=== PATIENT | female | born 1960 | race Two or more races ===

== ENCOUNTER 2020-11-13 11:10 | Outpatient (REF) | payer OTHER, SELFPAY | END 2020-11-13 11:11 | disposition home or self-care (01) | LOC: HO.LAB 11:10 | PROVIDERS: Visit Provider Internal Medicine | DX: Z20.828 Contact with and (suspected) exposure to other viral communicable diseases (principal) | CPT/HCPCS: C9803; U0003 ==

== ENCOUNTER 2021-10-22 14:20 | Outpatient (REF) | payer OTHER, SELFPAY | END 2021-10-22 14:21 | disposition home or self-care (01) | LOC: HO.MAMMO 14:20 | PROVIDERS: PCP Nurse Practitioner Family; Visit Provider Advanced Practice Midwife | DX: Z13.89 Encounter for screening for other disorder (principal) ==

== ENCOUNTER 2021-11-04 13:18 | Outpatient (REF) | payer OTHER, SELFPAY ==
--- NOTE | ~2021-11-04 | XR_ITS ---
EXAMINATION: XR CHEST CLINICAL INFORMATION: Asthma COMPARISON: 11/17/2019 TECHNIQUE: 2 views of the chest were obtained. FINDINGS: Normal symmetric lung volumes. No parenchymal consolidation. No pleural effusion. No pneumothorax. Cardiomediastinal silhouette and pulmonary vascularity are within normal limits. Aorta is atherosclerotic. No acute osseous abnormalities. XR/XR chest 2V IMPRESSION: No acute findings
== END 2021-11-04 13:19 | disposition home or self-care (01) ==
LOC: HO.LAB 13:18
PROVIDERS: Visit Provider Internal Medicine Cardiovascular Disease
DX: J45.909 Unspecified asthma, uncomplicated (principal); E78.5 Hyperlipidemia, unspecified
CPT/HCPCS: 71046

== ENCOUNTER 2021-11-06 09:33 | Outpatient (REF) | payer OTHER, SELFPAY ==
--- NOTE | ~2021-11-06 | MM_ITS ---
EXAMINATION: MM DIAGNOSTIC DIGITAL BREAST TOMOSYNTHESIS, LEFT US DIAGNOSTIC ULTRASOUND BREAST, LEFT CLINICAL INFORMATION: Chronic intermittent noncyclical pain left breast. Prior history excision intraductal papilloma left breast, 2015. No palpable mass or discharge. Family history breast cancer, cousin. TC Score 5%. COMPARISON: Outside imaging from [facility]: mammography 03/06/2021, 07/12/2020, 01/19/2020, 11/07/2019 and left breast ultrasound 11/07/2019. TECHNIQUE: Digital breast tomosynthesis is performed in both the craniocaudal and mediolateral oblique views along with computer-aided detection (CAD). Synthesized 2D images are generated from the tomosynthesis. Ultrasound left breast is targeted to the areas of clinical concern 12:00 through 6:00 position as well as retroareolar breast. Grayscale imaging and color Doppler are performed without and with harmonics. FINDINGS: There are scattered areas of fibroglandular density (ACR BI-RADS breast composition Category b). Parenchymal pattern is similar to prior exams. There is no interval mass or architectural abnormality. No developing density. There are scattered benign punctate calcifications as well as some vascular calcifications, similar in number and distribution. The axilla and skin contours are unremarkable. No skin thickening or coarsening of the Jaden's ligaments. Ultrasound left breast demonstrates no cystic or solid mass or architectural abnormality. No focal duct ectasia. No skin thickening or edema tracking in soft tissue planes. No hyperemia. Results are discussed with the patient at time of visit. MM/MM tomosynthesis diagnostic BI IMPRESSION: 1. No mammographic evidence of malignancy or inflammatory changes. 2. Unremarkable left breast ultrasound. ASSESSMENT: BI-RADS 2: Benign RECOMMENDATION: 1. Patient's chronic intermittent left breast pain should be managed based on the clinical impression. 2. Otherwise, routine annual screening mammography. This patient's information was entered into a reminder system with a target due date for their next mammogram.
== END 2021-11-06 09:34 | disposition home or self-care (01) ==
LOC: HO.MAMMO 09:33
PROVIDERS: PCP Nurse Practitioner Family; Visit Provider Advanced Practice Midwife
DX: N64.4 Mastodynia (principal)
CPT/HCPCS: 76642; 77062; 77066

== ENCOUNTER 2022-03-18 12:45 | Outpatient (REF) | payer OTHER, SELFPAY ==
[2022-03-18 13:35] LABS: COVID-19 Test Negative (Negative); IDNOW Serial# 08D9AD1C
== END 2022-03-18 12:46 | disposition home or self-care (01) ==
LOC: HO.LAB 12:45
PROVIDERS: Visit Provider Internal Medicine
DX: Z20.822 Contact with and (suspected) exposure to COVID-19 (principal)
CPT/HCPCS: 87635; C9803

== ENCOUNTER 2022-03-24 12:36 | Outpatient (REF) | payer OTHER, SELFPAY ==
[2022-03-24 13:10] LABS: COVID-19 Test Negative (Negative)
== END 2022-03-24 12:37 | disposition home or self-care (01) ==
LOC: HO.LAB 12:36
PROVIDERS: Visit Provider Internal Medicine
DX: Z20.822 Contact with and (suspected) exposure to COVID-19 (principal)
CPT/HCPCS: 87635; C9803

== ENCOUNTER 2022-08-31 13:22 | Outpatient (REF) | payer OTHER, SELFPAY ==
[2022-08-31 13:58] LABS: COVID-19 Test Negative (Negative)
== END 2022-08-31 13:23 | disposition home or self-care (01) ==
LOC: HO.LAB 13:22
PROVIDERS: Visit Provider Internal Medicine
DX: Z20.822 Contact with and (suspected) exposure to COVID-19 (principal)
CPT/HCPCS: 87635; C9803

== ENCOUNTER 2022-09-18 11:21 | Outpatient (REF) | payer OTHER, SELFPAY ==
[2022-09-18 12:26] LABS: Estimated Average Glucose 111 mg/dL; Hemoglobin A1c % 5.5 %
[2022-09-18 12:49] LABS: Alanine Aminotransferase 11 U/L (0-31); Albumin Level 4.6 g/dL (3.5-5.0); Alkaline Phosphatase 68 U/L (39-117); Anion Gap 14 (12-20); Aspartate Amino Transferase 14 U/L (5-31); Bilirubin Total 0.3 mg/dL (0.0-1.0); Blood Urea Nitrogen 9 mg/dL (9-16); Calcium 9.6 mg/dL (8.4-10.2); Carbon Dioxide 28 mmol/L (22-29); Chloride 103 mmol/L (96-108); Cholesterol 231 mg/dL; Estimated Glomerular Filt Rate > 60; Glucose Random 79 mg/dL (60-115); HDL Cholesterol 72 mg/dL; LDL Cholesterol Calculated 141 mg/dl; Potassium 3.8 mmol/L (3.3-5.1); Sodium 141 mmol/L (135-145); Total Protein 7.7 g/dL (6.5-8.0); Triglycerides 92 mg/dL
[2022-09-18 13:01] LABS: TSH reflex Free T4 0.81 uIU/mL (0.32-4.0)
== END 2022-09-18 11:22 | disposition home or self-care (01) ==
LOC: HO.LAB 11:21
PROVIDERS: PCP General Practice; Visit Provider General Practice
DX: E03.9 Hypothyroidism, unspecified (principal); E78.5 Hyperlipidemia, unspecified; I10 Essential (primary) hypertension
CPT/HCPCS: 36415; 80053; 80061; 83036; 84443

== ENCOUNTER 2023-11-08 12:08 | Emergency (ER) | payer OTHER, SELFPAY ==
[2023-11-08 12:37] VITALS: BP 140/80; PULSE 66; O2SAT 97
[2023-11-08 12:41] VITALS: BP 143/67; PULSE 96; RESP 16; TEMP 37.7; O2SAT 100; BMI 21.5
[2023-11-08 13:11] LABS: COVID-19 Test Positive (Negative); IDNOW Serial# 08D9AD1C
[2023-11-08 13:22] LABS: IDNOW Serial# BCCEAD1C; Influenza A Negative (Negative); Influenza B2 Negative (Negative)
--- NOTE | 2023-11-08 14:57 | ED.GENADULT ---
HPI - General Adult General Chief complaint: General Medical Stated complaint: MEAGAN LEG PAIN,NO INJURY PER EMS Time Seen by Provider: 11/08/23 13:14 History of Present Illness HPI narrative: Patient complains of body aches nausea a mild cough mild runny nose, no vomiting no diarrhea no chest pain no sputum no shortness of breath Related Data Previous Rx's Medication Instructions Recorded nirmatrelvir 300 mg (150 mg See Rx Instructions PO .COMPLEX 11/08/23 x2)-ritonavir 100 mg tablet,dose #30 ea pack (Paxlovid) ondansetron 4 mg disintegrating 4 mg PO Q6-8H PRN nausea and 11/08/23 tablet vomiting #14 tabs Allergies Allergy/AdvReac Type Severity Reaction Status Date / Time oxycodone [Percocet] Allergy Unknown GI upset Verified 09/25/21 13:30 codeine [CODEINE] AdvReac Intermediate GI UPSET Unverified 09/25/21 13:30 From Percocet AdvReac Intermediate GI UPSET Uncoded 09/25/21 13:30 PMF Past Medical History Source: nursing notes reviewed Social History Social History (System 09/25/21 @ 13:30 by Norah Heard) Advance Directives: No Advance Directives Information Provided: No Physical Exam ED Vital Signs: Vital Signs - 24 hr 11/08/23 12:41 Temperature 99.8 F Pulse Rate 96 Respiratory Rate 16 Blood Pressure 143/67 H Pulse Oximetry 100 Oxygen Delivery Method Room Air BMI result Body Mass Index 21.5 General appearance comfortable cooperative no acute distress speaking full sentences no respiratory distress Eyes no redness or discharge The sinuses nontender The pharynx is clear without redness swelling or exudate membranes are moist voice is normal Neck is supple Chest is clear to auscultation with full symmetric equal breath sounds Heart no murmur Abdomen soft nontender Extremities full range of motion x4 Neuro gait and balance are normal, interaction comprehension and expression are all normal, motor is 5/5 x4, no focal deficits Skin no rash Course Course Course Narrative: Well-appearing patient with normal exam was positive for COVID She has had symptoms under 48 hours so she agreed to take the Paxlovid, I did check medication interactions and I recommended she do not take zolpidem tramadol or atorvastatin while taking Paxlovid and she understood and agreed, it is okay to take her thyroid medicine Medical Decision Making Lab Data Labs: Lab Results 11/08/23 Range/Units 12:48 COVID-19 (LEXIE) Positive A (Negative) COVID-19 Clin Com See Note Influenza Type A (ANANDA) Negative (Negative) Influenza Type B (ANANDA) Negative (Negative) Influenza A & B Note See Note Discharge Plan Discharge Clinical Impression: COVID Patient Disposition: Home, Self-Care Additional Instructions: You tested positive for COVID so we are treating with paxlovid It is okay to take her thyroid medicine while taking paxlovid, but do not take tramadol or atorvastatin or zolpidem while taking paxlovid Return any time any worse condition or any concerns Prescriptions: New ondansetron 4 mg tablet,disintegrating 4 mg PO Q6-8H PRN (Reason: nausea and vomiting) Qty: 14 0RF Paxlovid 300 mg (150 mg x 2)-100 mg tablets,dose pack See Rx Instructions .ROUTE .COMPLEX Qty: 30 0RF Rx Instructions: take TWO 150 mg tablets of nirmatrelvir with ONE 100 mg tablet of ritonavir twice daily for 5 days
[2023-11-08 15:41] VITALS: BP 142/71; PULSE 89; RESP 18; TEMP 37; O2SAT 99
== END 2023-11-08 15:42 | disposition home or self-care (01) ==
PROVIDERS: Emergency Provider Emergency Medicine; PCP General Practice
DX: U07.1 COVID-19 (principal); M79.10 Myalgia, unspecified site; R05.9 Cough, unspecified; Z79.899 Other long term (current) drug therapy
CPT/HCPCS: 87502; 87635; 99283

== ENCOUNTER 2023-12-14 14:24 | Outpatient (REF) | payer OTHER, SELFPAY ==
--- NOTE | ~2023-12-14 | MM_ITS ---
EXAMINATION: MM SCREENING DIGITAL BREAST TOMOSYNTHESIS, BILATERAL CLINICAL INFORMATION: Screening. Asymptomatic. The patient is status post excision of an intraductal papilloma of the upper outer quadrant of the left breast in 2015. COMPARISON: Mammography: This study is compared with prior exams dating back to 2019. TECHNIQUE: Digital breast tomosynthesis is performed in both the craniocaudal and mediolateral oblique views along with computer-aided detection (CAD). Synthesized 2D images are generated from the tomosynthesis. FINDINGS: The breasts are heterogeneously dense, which may obscure small masses (ACR BI-RADS breast composition Category c). There are no significant masses, abnormal calcifications, or other abnormalities. Postsurgical changes are present in the upper outer quadrant of the left breast. Bilateral benign calcifications are present in each breast. MM/MM tomosynthesis screening BI IMPRESSION: No mammographic evidence of malignancy. ASSESSMENT: BI-RADS BI-RADS 2 - Benign Findings RECOMMENDATION: Routine annual mammography screening. 1 year F/U This examination should not preclude the clinical evaluation of a suspicious palpable abnormality. This patient's information was entered into a reminder system with a target due date for their next mammogram.
== END 2023-12-14 14:25 | disposition home or self-care (01) ==
LOC: HO.MAMMO 14:24
PROVIDERS: PCP Family Medicine; Visit Provider Family Medicine
DX: Z12.31 Encounter for screening mammogram for malignant neoplasm of breast (principal)
CPT/HCPCS: 77063; 77067

== ENCOUNTER → 2023-12-14 14:45 | Outpatient (BNV) | payer OTHER, SELFPAY | PROVIDERS: PCP Family Medicine; Visit Provider Radiology Diagnostic Radiology | DX: Z12.31 Encounter for screening mammogram for malignant neoplasm of breast (principal) | CPT/HCPCS: 77063; 77067 ==

== ENCOUNTER 2024-09-12 15:48 | Outpatient (REF) | payer OTHER, SELFPAY ==
[2024-09-12 18:14] LABS: Alanine Aminotransferase 31 U/L (0-31); Albumin Level 4.4 g/dL (3.5-5.0); Alkaline Phosphatase 72 U/L (39-117); Anion Gap 13 (12-20); Aspartate Amino Transferase 27 U/L (5-31); Bilirubin Total 0.3 mg/dL (0.0-1.0); Blood Urea Nitrogen 19 mg/dL (9-16); Calcium 9.7 mg/dL (8.4-10.2); Carbon Dioxide 26 mmol/L (22-29); Chloride 106 mmol/L (96-108); Cholesterol 216 mg/dL (<200); Estimated Glomerular Filt Rate > 60; Glucose Random 98 mg/dL (60-115); HDL Cholesterol 82 mg/dL (>40); LDL Cholesterol Calculated 105 mg/dL (<100); Potassium 3.9 mmol/L (3.3-5.1); Sodium 141 mmol/L (135-145); Total Protein 7.7 g/dL (6.5-8.0); Triglycerides 146 mg/dL (<150)
== END 2024-09-12 15:49 | disposition home or self-care (01) ==
LOC: HO.HHCL 15:48
PROVIDERS: Visit Provider General Practice
DX: I10 Essential (primary) hypertension (principal); E03.9 Hypothyroidism, unspecified
CPT/HCPCS: 36415; 80053; 80061; 84443

== ENCOUNTER 2024-11-02 11:09 | Outpatient (AMB) | payer OTHER, SELFPAY ==
--- NOTE | 2024-11-02 11:05 | MHC.OFFVIS ---
Vital Signs 11/02/24 11:10 Height 5 ft Weight 110 lb BMI 21.5 Intake Visit Reasons: REGISTERED NURSE RENAL/HHC Ref for VV w/ Hx [facility] Intake Note: Pt referred for VV w/ hx of Left LE Venous procedure at [facility], did cause some nerve damage. States it was about 3 or more years ago. Pt states that Left LE has pain and numbness. States she has issues on the Right LE but doesnt want itervention s/p issue w/ the left LE Lead Custodian Required: No Accompanied by: Self / Same As Patient Allergies oxycodone [Percocet] Allergy (Unknown, Verified 11/02/24 11:13) GI upset codeine [CODEINE] Adverse Reaction (Intermediate, Unverified 11/02/24 11:13) GI UPSET From Percocet Adverse Reaction (Intermediate, Uncoded 11/02/24 11:13) GI UPSET HPI HPI REGISTERED NURSE RENAL/HHC Ref for VV w/ Hx [facility]: Details: Lorenza, a pleasant 64-year-old female patient, is presenting today for a 4 year history of pain in her calves as well as swelling. She is status post left lower extremity vein procedure at [facility], possibly a microphlebectomy. She states she was having just cramping prior to that and did not tolerate procedure well. She states she thinks she has nerve damage from the procedure. She states the pain has continued since. Complaints include pain in her calves, slight swelling of lower extremities, cramping, fatigue, and heaviness of the lower extremities. It has been affecting their daily activities including walking, standing, and physical activity. It is noted more so in left leg. She is not a smoker and is not a diabetic. Patient states she had a microphlebectomy at [facility] approximately 4 years ago in the left lower extremity. Patient denies any history of DVT/ PE. Patient denies any history of phlebitis. Trial of compression includes - occasionally compression stockings and elevation They now present for vascular evaluation regarding their varicose veins. Review of Systems Const Reports as per HPI and Denies weakness ENT Reports Normal hearing present and Denies dizziness Card Reports as per HPI, Denies chest pain, Denies chest pain at rest, Denies chest pain with activity, Denies dyspnea and Denies dyspnea on exertion Resp Reports as per HPI, Denies cough, Denies dyspnea and Denies dyspnea on exertion GI Reports as per HPI, Denies abdominal pain, Denies nausea and Denies vomiting Musc Denies numbness Skin/Breast Reports as per HPI, Denies erythema and Denies wounds Neuro Reports Normal hearing present, Denies dizziness, Denies numbness, Denies Sensory deficit (Neuro) and Denies weakness Psych Reports no additional complaints Endo Reports no additional complaints Physical Exam Vital Signs: BMI result Body Mass Index 21.5 Const General: healthy appearing and no acute distress Orientation/consciousness: patient oriented x3 HEENT Head: Yes normal to inspection Ears: hearing grossly normal bilaterally Mouth: Normal oral and palatal mucosa present Resp Effort & Inspection: normal respiratory effort and able to speak in complete sentences Auscultation: clear to auscultation bilaterally Cardio Jugular venous distension: no JVD Rate: regular rate Rhythm: regular rhythm Heart sounds: S1 normal heart sound present and S2 normal heart sound present Bruits: no abdominal aortic bruits, no carotid bruits, no femoral bruits and no renal bruits Peripheral pulses: Peripheral pulses 2+ throughout GI Inspection: Yes normal to inspection Palpation (GI): No Abdominal aortic bruit present Skin General skin exam: no rashes or lesions noted Wounds: no wounds Hair: normal Neuro General: patient oriented x3 Cranial nerves: Yes Normal hearing present Cognition (Neuro): normal cognition Gait exam (Neuro): Normal gait present Motor exam (neuro): 5/5 motor strength present throughout Sensory Exam: No Sensory deficit (Neuro) Extrem Other: Left lower extremity: Spider veins noted in the tibial tuberosity area. Slight discoloration noted around the ankle. No swelling noted now; however the patient states swelling usually occurs later in the day. Palpable DP pulses. Right lower extremity: Small spider veins noted in the tibial tuberosity area. Palpable DP pulses. CEAP: C - 4 E - primary A - superficial P - reflux General: Yes normal to inspection, Yes full ROM, Yes capillary refill normal and Yes normal gait Assessment & Plan Assessment & Plan (1) Varicose veins of both lower extremities with inflammation: Code(s): I83.11 - Varicose veins of right lower extremity with inflammation; I83.12 - Varicose veins of left lower extremity with inflammation Category: Medical Plan: Lorenza is presenting today as a referral from her primary care for varicose veins/venous insufficiency. In short, the patient has evidence of venous insufficiency. I have discussed the pathophysiology with the patient. In addition I have provided informational material regarding venous disease to the patient. We have discussed conservative measures including compression, elevation, and exercise. We discussed continuing to use compression stockings. I have taken the liberty of ordering venous insufficiency testing with the patient. They will follow up with me after testing. The patient had an opportunity to ask questions regarding the treatment plan. All questions were answered. Imaging studies, laboratory studies and physical exam results were discussed and reviewed in detail. No major barriers to understanding were identified. The patient expressed understanding and agreement with the above treatment plan. The patient is aware they should contact our office by phone for worsening of the current condition or the appearance of new symptoms. Thank you for allowing me to participate in the vascular care of this patient. If you have any questions or concerns regarding the treatment for the above condition please do not hesitate to contact me. The office telephone contact is [phone]. This note is constructed using voice recognition software. While every effort has been made to ensure accuracy, home planning consultant salesperson errors may have been included. Thank you for allowing me to participate in the care of your patient. Yours sincerely, PASHA Howell Orders: Orders US venous duplex LE BI 1 Week I83.11 - Varicose veins of right lower extremity with inflammation, I83.12 - Varicose veins of left lower extremity with inflammation Coding Level of Care Code New Pt Level 4 (66317) Diagnoses Varicose veins of both lower extremities with inflammation I83.11; I83.12
[2024-11-02 11:10] VITALS: BMI 21.5
== END 2024-11-02 11:29 | disposition home or self-care (01) ==
PROVIDERS: PCP Family Medicine; Visit Provider Physician Assistant Surgical
DX: I83.11 Varicose veins of right lower extremity with inflammation (principal); I83.12 Varicose veins of left lower extremity with inflammation
CPT/HCPCS: 99204

== ENCOUNTER → 2024-11-02 11:09 | Outpatient (BNVA) | payer OTHER, SELFPAY | PROVIDERS: PCP Family Medicine; Visit Provider Physician Assistant Surgical | DX: I83.11 Varicose veins of right lower extremity with inflammation (principal); I83.12 Varicose veins of left lower extremity with inflammation | CPT/HCPCS: 99202 ==

== ENCOUNTER 2024-11-23 12:45 | Outpatient (REF) | payer OTHER, SELFPAY ==
--- NOTE | ~2024-11-23 | US_ITS ---
EXAMINATION: US LOWER EXTREMITY VENOUS (REFLUX EXAM), BILATERAL CLINICAL INFORMATION: Varices in the right lower extremity with inflammation. COMPARISON: None. TECHNIQUE: Color flow triplex imaging and compression Doppler was performed to evaluate both the deep and the superficial systems bilaterally. To evaluate the superficial system, the examination was performed in the upright position. Color-flow Doppler ultrasound and compression ultrasound were utilized. In addition, maneuvers were utilized to demonstrate reflux. FINDINGS: 1. DEEP VENOUS ULTRASOUND OF THE RIGHT LOWER EXTREMITY: Common Femoral Vein: Compressible, normal respiratory variation and augmented flow. Femoral Vein: Compressible, normal color flow and augmentation. Popliteal Vein: Compressible, normal augmentation. Deep Reflux: There is no evidence of reflux in the deep system in either the common femoral vein, superficial femoral or the popliteal vein. There is no evidence of a Mendez's cyst. 2. SUPERFICIAL ULTRASOUND WITH DOPPLER OF RIGHT LOWER EXTREMITY: GREAT SAPHENOUS VEIN: Saphenofemoral Junction: 0.4 cm; Reflux: 0 ms Proximal Thigh: 0.3 cm; Reflux: 0 ms Mid Thigh: 0.2 cm; Reflux: 0 ms Distal Thigh: 0.2 cm; Reflux: 0 ms At Knee: 0.1 cm; Reflux: 0 ms Proximal Calf: 0.1 cm; Reflux: 0 ms Mid Calf: 0.1 cm; Reflux: 0 ms Distal Calf: 0.2 cm; Reflux: 0 ms DUPLICATED MEDIAL GREAT SAPHENOUS VEIN: Diameter: None imaged Reflux: NA DUPLICATED LATERAL GREAT SAPHENOUS VEIN: Diameter: None imaged Reflux: NA SMALL SAPHENOUS VEIN: Saphenopopliteal Junction: 0.1 cm; Reflux: 0 ms Proximal: 0.2 cm; Reflux: 0 ms Distal: 0.2 cm; Reflux: 0 ms VEIN OF GIACOMINI: Size: NA Reflux: NA PERFORATORS: Location: None imaged Size: NA Reflux: NA VARICOSITIES: Location: None imaged. Size: NA Reflux: NA 3. DEEP VENOUS ULTRASOUND OF THE LEFT LOWER EXTREMITY: Common Femoral Vein: Compressible, normal respiratory variation and augmented flow. Femoral Vein: Compressible, normal color flow and augmentation. Popliteal Vein: Compressible, normal augmentation. Deep Reflux: There is no evidence of reflux in the deep system in either the common femoral vein, superficial femoral or the popliteal vein. There is no evidence of a Mendez's cyst. 4. SUPERFICIAL ULTRASOUND WITH DOPPLER OF LEFT LOWER EXTREMITY: GREAT SAPHENOUS VEIN: Saphenofemoral Junction: 0.8 cm; Reflux: 0 ms Proximal Thigh: 0.3 cm; Reflux: 0 ms Mid Thigh: 0.2 cm; Reflux: 0 ms Distal Thigh: 0.1 cm; Reflux: 0 ms At Knee: 0.1 cm; Reflux: 0 ms Proximal Calf: 0.1 cm; Reflux: 0 ms Mid Calf: 0.1 cm; Reflux: 0 ms Distal Calf: 0.2 cm; Reflux: 0 ms DUPLICATED MEDIAL GREAT SAPHENOUS VEIN: Diameter: None imaged Reflux: NA DUPLICATED LATERAL GREAT SAPHENOUS VEIN: Diameter: None imaged. Reflux: NA SMALL SAPHENOUS VEIN: Saphenopopliteal Junction: Not imaged cm; Reflux: 0 ms Proximal: Not imaged cm; Reflux: 0 ms Distal: Not imaged cm; Reflux: 0 ms VEIN OF GIACOMINI: Size: NA Reflux: NA PERFORATORS: Location: None imaged Size: NA Reflux: NA VARICOSITIES: Location: None Imaged Size: NA Reflux: NA US/US venous insuf bilat IMPRESSION: Right: No venous insufficiency. Left: No venous insufficiency. Status post left microphlebectomy. Electronically signed by: Yayo Watters MD 11/29/2024 09:27 AM EST
== END 2024-11-23 12:46 | disposition home or self-care (01) ==
LOC: HO.US 12:45
PROVIDERS: PCP General Practice; Visit Provider Physician Assistant Surgical
DX: I83.11 Varicose veins of right lower extremity with inflammation (principal); I83.12 Varicose veins of left lower extremity with inflammation
CPT/HCPCS: 93970

== ENCOUNTER → 2024-11-23 12:47 | Outpatient (BNV) | payer OTHER, SELFPAY | PROVIDERS: PCP General Practice; Visit Provider Radiology Diagnostic Radiology | DX: I83.11 Varicose veins of right lower extremity with inflammation (principal); I83.12 Varicose veins of left lower extremity with inflammation | CPT/HCPCS: 93970 ==

== ENCOUNTER 2024-12-14 13:35 | Outpatient (AMB) | payer OTHER, SELFPAY ==
--- NOTE | 2024-12-14 13:38 | MHC.OFFVIS ---
Intake Visit Reasons: follow up s/p 11/23/24 Intake Note: Patient presents for US follow up. Performed on 11/23/24. Accompanied by: Self / Same As Patient Allergies oxycodone [Percocet] Allergy (Unknown, Verified 12/14/24 13:39) GI upset codeine [CODEINE] Adverse Reaction (Intermediate, Verified 12/14/24 13:39) GI UPSET From Percocet Adverse Reaction (Intermediate, Uncoded 11/02/24 11:13) GI UPSET HPI HPI follow up s/p 11/23/24: Details: Lorenza is presenting today on a follow up for venous insufficiency ultrasound, performed on 11/23/2024. She does continue to endorse bilateral lower extremity pain and burning sensation in her feet. She has no new concerns today. Review of Systems Const Reports as per HPI and Denies weakness ENT Reports Normal hearing present and Denies dizziness Card Reports as per HPI, Denies chest pain, Denies chest pain at rest, Denies chest pain with activity, Denies dyspnea and Denies dyspnea on exertion Resp Reports as per HPI, Denies cough, Denies dyspnea and Denies dyspnea on exertion GI Reports as per HPI, Denies abdominal pain, Denies nausea and Denies vomiting Musc Denies numbness Skin/Breast Reports as per HPI, Denies erythema and Denies wounds Neuro Reports Normal hearing present, Denies dizziness, Denies numbness, Denies Sensory deficit (Neuro) and Denies weakness Psych Reports no additional complaints Endo Reports no additional complaints Physical Exam Const General: healthy appearing and no acute distress Orientation/consciousness: patient oriented x3 HEENT Head: Yes normal to inspection Ears: hearing grossly normal bilaterally Mouth: Normal oral and palatal mucosa present Resp Effort & Inspection: normal respiratory effort and able to speak in complete sentences Auscultation: clear to auscultation bilaterally Cardio Jugular venous distension: no JVD Rate: regular rate Rhythm: regular rhythm Heart sounds: S1 normal heart sound present and S2 normal heart sound present Bruits: no abdominal aortic bruits, no carotid bruits, no femoral bruits and no renal bruits Peripheral pulses: Peripheral pulses 2+ throughout GI Inspection: Yes normal to inspection Palpation (GI): No Abdominal aortic bruit present Skin General skin exam: no rashes or lesions noted Wounds: no wounds Hair: normal Neuro General: patient oriented x3 Cranial nerves: Yes Normal hearing present Cognition (Neuro): normal cognition Gait exam (Neuro): Normal gait present Motor exam (neuro): 5/5 motor strength present throughout Sensory Exam: No Sensory deficit (Neuro) Extrem Other: Left lower extremity: Spider veins noted in the tibial tuberosity area. Slight discoloration noted around the ankle. No swelling noted now; however the patient states swelling usually occurs later in the day. Palpable DP pulses. Right lower extremity: Small spider veins noted in the tibial tuberosity area. Palpable DP pulses. General: Yes normal to inspection, Yes full ROM, Yes capillary refill normal and Yes normal gait Results Reviewed Results Reviewed: Brief summary of venous insufficiency testing is as follows: right great saphenous vein: negative right small saphenous vein: negative right accessory vein: none present left great saphenous vein: negative left small saphenous vein: negative left accessory vein: none present Please note there is no evidence of any venous aneurysms or significant tortuosity Assessment & Plan Assessment & Plan (1) Varicose veins of both lower extremities with inflammation: Code(s): I83.11 - Varicose veins of right lower extremity with inflammation; I83.12 - Varicose veins of left lower extremity with inflammation Category: Medical Plan: Lorenza is presenting today on a follow up to her venous insufficiency ultrasound, performed on 11/23/2024. The ultrasound is negative for any venous insufficiency. She does continue to endorse bilateral lower extremity pain in burning of her feet. We discussed that she should be following back up with the primary care for further assessment of this pain. She was told from a visiting nurse that this may be a neuropathy. We discussed the importance of continuing with elevation, compression stockings, and physical activity. We discussed the importance of a well-balanced diet. We discussed that if she has any other vascular concerns, she can reach out to our office at any time. Thank you for allowing us to participate in patient's care. If there are any questions or concerns, please do not hesitate to reach out to our office. Coding Level of Care Code Est Pt Level 4 (25636) Diagnoses Varicose veins of both lower extremities with inflammation I83.11; I83.12 Comment Review of venous insufficiency ultrasound
== END 2024-12-14 13:48 | disposition home or self-care (01) ==
PROVIDERS: PCP General Practice; Visit Provider Physician Assistant Surgical
DX: I83.11 Varicose veins of right lower extremity with inflammation (principal); I83.12 Varicose veins of left lower extremity with inflammation
CPT/HCPCS: 99214

== ENCOUNTER → 2024-12-14 13:35 | Outpatient (BNVA) | payer OTHER, SELFPAY | PROVIDERS: PCP General Practice; Visit Provider Physician Assistant Surgical | DX: I83.11 Varicose veins of right lower extremity with inflammation (principal); I83.12 Varicose veins of left lower extremity with inflammation | CPT/HCPCS: 99212 ==

== ENCOUNTER 2025-04-09 14:09 | Outpatient (REF) | payer OTHER, SELFPAY ==
--- NOTE | ~2025-04-09 | XR_ITS ---
EXAMINATION: XR WRIST 3 OR MORE VIEWS RIGHT, XR HAND 3 OR MORE VIEWS RIGHT HISTORY: punching injury COMPARISON: There are no prior studies available for comparison. FINDINGS: Six views of the right hand and wrist are submitted. Osseous mineralization is normal. There is a nondisplaced transverse fracture of the distal radial metaphysis. No additional fracture is identified. There is no dislocation. 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 There is soft tissue swelling at the fracture site. XR/XR hand RT min 3V IMPRESSION: Nondisplaced transverse fracture of the distal radial metaphysis. Electronically signed by: Ricky Pritchard MD 04/09/2025 02:36 PM EDT
--- NOTE | ~2025-04-09 | XR_ITS ---
EXAMINATION: XR WRIST 3 OR MORE VIEWS RIGHT, XR HAND 3 OR MORE VIEWS RIGHT HISTORY: punching injury COMPARISON: There are no prior studies available for comparison. FINDINGS: Six views of the right hand and wrist are submitted. Osseous mineralization is normal. There is a nondisplaced transverse fracture of the distal radial metaphysis. No additional fracture is identified. There is no dislocation. 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 There is soft tissue swelling at the fracture site. XR/XR wrist RT min 3V IMPRESSION: Nondisplaced transverse fracture of the distal radial metaphysis. Electronically signed by: Ricky Pritchard MD 04/09/2025 02:36 PM EDT
== END 2025-04-09 14:10 | disposition home or self-care (01) ==
LOC: HO.HHCX 14:09
PROVIDERS: Visit Provider General Practice
DX: M25.531 Pain in right wrist (principal); M25.431 Effusion, right wrist
CPT/HCPCS: 73110; 73130

== ENCOUNTER → 2025-04-09 14:09 | Outpatient (BNV) | payer OTHER, SELFPAY | PROVIDERS: Visit Provider Radiology Diagnostic Radiology | DX: S52.591A Other fractures of lower end of right radius, initial encounter for closed fracture (principal); S52.514A Nondisplaced fracture of right radial styloid process, initial encounter for closed fracture | CPT/HCPCS: 73110; 73130 ==

== ENCOUNTER 2025-04-17 14:55 | Outpatient (REF) | payer OTHER, SELFPAY ==
--- NOTE | ~2025-04-17 | XR_ITS ---
EXAMINATION: XR WRIST NAVICULAR RIGHT HISTORY: M25.531 - Pain in right wrist COMPARISON: Comparison is made with the prior examination dated 04/09/2025. FINDINGS: Four views of the right wrist including a scaphoid view are submitted. There is a cyst within the lunate. Again seen is a nondisplaced transverse fracture of the distal radial metaphysis. The fracture line remains visible. Again seen is degenerative change of the thumb. The soft tissues are unremarkable. XR/XR wrist RT w scaphoid IMPRESSION: Nondisplaced transverse fracture of the distal radial metaphysis without change. Electronically signed by: Ricky Pritchard MD 04/18/2025 09:41 AM EDT
== END 2025-04-17 14:56 | disposition home or self-care (01) ==
LOC: HO.HOSX 14:55
PROVIDERS: Visit Provider Orthopaedic Surgery
DX: M25.531 Pain in right wrist (principal); S52.501A Unspecified fracture of the lower end of right radius, initial encounter for closed fracture
CPT/HCPCS: 73110; 99202

== ENCOUNTER 2025-04-17 14:55 | Outpatient (AMB) | payer OTHER, SELFPAY ==
--- OUTSIDE RECORDS SUMMARY | 2025-04-17 14:58 | XMS_ITS | Encounter Summary ---
Author Organization [employer] Address [address] [facility] [address] [place] [address] Care Team Providers Care Tuber Machine Operator Name Role Phone Kelly Rushing MD Primary Care Provider Reason for Visit * Reason Comments Med Refill Encounter Details Date Type Department Care Team (Late st Contact Info) Description 09/15/2024 Refill [facility] PEDS [address] [place], [place] [phone] Kelly Rushing MD [address] [place] [address] Low back pain with sciatica, sciatica laterality unspecified, unspecified back pain laterality, unspecified chronicity Social History Tobacco Use Types Packs/Day Years Used Date Smoking Tobacco: Never Passive Smoke Exposure: Never Smokeless Tobacco: Never Alcohol Use Standard Drinks/Week Comments Yes 12 (1 standard drink = 0.6 oz pu re alcohol) Depression Answer Date Recorded Patient Health Questionnaire-9 Score 7 09/12/2024 Patient Health Questionnaire-9 Score 7 09/12/2024 Last PHQ-9: Questionnaire Data Not on file 1 Housing Stability Answer Date Recorded What is your housing situation today? I have denita kinney 09/12/[address] you li ve. Do you have problems with any of the following? None of the above 09/12/2024 Food Insecurity Answer Date Recorded Within the past 12 months, y ou worried that your food would run out before you got money to buy more: Never True 09/12/2024 Within the past 12 months,th e food you bought just didn't last and you didn't have enough money to get more: Never True Transportation Answer Date Recorded In the past 12 months, has l ack of transportation kept you from medical appts, meetings, work or from getting things needed for daily living? No 12/14/2023 Utilities Answer Date Recorded In the past 12 months, has t he electric, gas, oil or water company threatened to shut off services in your home? No 12/14/2023 Depression Answer Date Recorded Patient Health Questionnaire-2 Score 2 09/12/2024 Internet Access Answer Date Recorded Internet Access Q1 Yes 09/12/2024 Internet Access Q2 Not on file 09/12/2024 Comments Unknown Sex and Gender Information Value Date Recorded Sex Assigned at Female 09/21/2022 10:15 AM EDT Legal Sex Female 10:15 AM EDT Gender Identity Female 09/21/2022 10:15 AM EDT Sexual Orientation Choose not to disclose 2021 10:15 AM EDT documented as of this encounter Miscellaneous Notes * Telephone Encounter - Kelly Rushing MD - 09/16/2024 7:41 PM EDT She and I had our first visit in almost two years on 09/12/24 and did not talk about Ambien or Tramadol, so I am going to refuse these for now. I have to call her back about lab results and mammogram, so I will address CASHIER TICKET SELLING and meds with her then. documented in this encounter Plan of Treatment Upcoming Encounters Date Type Department Care Team (Late st Contact Info) Description 06/25/2025 2:30 PM EDT Office Visit [facility] [address] [place] [address] Kelly Rushing MD [address] [place] [address] documented as of this encounter Visit Diagnoses Diagnosis Low back pain with sciatica, sciatica laterality unspecified, unspecified back pain laterality, unspecified chronicity documented in this encounter Additional Health Concerns Assessment Noted Time PHQ-9 Depression Total Score: 7 09/12/20 3:14 PM EDT documented as of this encounter Care Teams Tuber Machine Operator Relationship Specialty Start Date End Date Kelly Rushing MD [address] [place] [address] PCP - General Family Medicine 11/30/22 documented as of this encounter
[2025-04-17 15:20] VITALS: BMI 21.5
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
== END 2025-04-17 16:27 | disposition home or self-care (01) ==
LOC: HO.HOS 14:56
PROVIDERS: Visit Provider Orthopaedic Surgery
DX: S52.501A Unspecified fracture of the lower end of right radius, initial encounter for closed fracture (principal)
CPT/HCPCS: 25600; 99204

== ENCOUNTER → 2025-04-17 15:56 | Outpatient (BNV) | payer OTHER, SELFPAY | PROVIDERS: Visit Provider Radiology Diagnostic Radiology | DX: S52.325A Nondisplaced transverse fracture of shaft of left radius, initial encounter for closed fracture (principal) | CPT/HCPCS: 73110 ==

== ENCOUNTER 2025-05-15 08:43 | Outpatient (REF) | payer OTHER, SELFPAY ==
--- NOTE | ~2025-05-15 | XR_ITS ---
EXAMINATION: XR WRIST, RIGHT CLINICAL INFORMATION: M25.531 - Pain in right wrist COMPARISON: April 17, 2025. TECHNIQUE: PA, lateral, and oblique views of the right wrist. FINDINGS: There is no callus formation. There is no periosteal bone reaction. Persistent lucency through the distal metaphysis of the radius. Degenerative changes in the carpal bones and first and second carpometacarpal joints. No subcutaneous emphysema. XR/XR wrist RT min 3V IMPRESSION: Nonunion fracture, distal metaphysis, right radius. Electronically signed by: Yayo Watters MD 05/15/2025 02:03 PM EDT
--- OUTSIDE RECORDS SUMMARY | 2025-05-16 09:11 | XMS_ITS | Encounter Summary ---
Author Organization [email or web address] Address [address] [facility] [address] [place] [address] Care Team Providers Care Machinist Tool And Die Name Role Phone Kelly Rushing MD Primary Care Provider [phone] Reason for Visit * Reason Comments Med Refill Encounter Details Date Type Department Care Team (Late st Contact Info) Description 09/15/2024 Refill [facility] MED & PEDS [address] [place], [place] [phone] Kelly Rushing MD [address] [place] [address] Low back pain with sciatica, sciatica laterality [...] results and mammogram, so I will address SOFTWARE DEVELOPMENT PROJECT MANAGER and meds with her then. documented in this encounter Plan of Treatment Upcoming Encounters Date Type Department Care Team (Late st Contact Info) Description 06/25/2025 2:30 PM EDT Office Visit [facility] MEDICINE [address] [place] [address] Kelly Rushing MD [address] [place] [address] documented as of this encounter Visit Diagnoses Diagnosis Low back pain with sciatica, sciatica laterality unspecified, unspecified back pain laterality, unspecified chronicity documented in this encounter Additional Health Concerns Assessment Noted Time PHQ-9 Depression Total Score: 7 09/12/20 3:14 PM EDT documented as of this encounter Care Teams Machinist Tool And Die Relationship Specialty Start Date End Date Kelly Rushing MD [address] [place] [address] PCP - General Family Medicine 11/30/22 documented as of this encounter
== END 2025-05-15 08:44 | disposition home or self-care (01) ==
LOC: HO.HOSX 08:43
DX: S52.501D Unspecified fracture of the lower end of right radius, subsequent encounter for closed fracture with routine healing (principal)
CPT/HCPCS: 73110; 99212

== ENCOUNTER 2025-05-15 13:44 | Outpatient (AMB) | payer OTHER, SELFPAY ==
[2025-05-15 13:50] VITALS: BMI 21.5
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
[2025-05-15 13:59] VITALS: BMI 21.5
--- OUTSIDE RECORDS SUMMARY | 2025-05-15 16:02 | XMS_ITS | Encounter Summary ---
Author Organization [employer] Address [address] [facility] [address] [place] [address] Care Team Providers Care Edger Machine Setter Name Role Phone Kelly Rushing MD Primary Care Provider [phone] Reason for Visit * Reason Comments Med Refill Encounter Details Date Type Department Care Team (Late st Contact Info) Description 09/15/2024 Refill [facility] MED & PEDS [address] [place], [place] [phone] Kelly Rushing MD [address] [place] [address] Low back pain with sciatica, sciatica laterality [...] results and mammogram, so I will address REGISTERED CLIENT ASSOCIATE and meds with her then. documented in this encounter Plan of Treatment Upcoming Encounters Date Type Department Care Team (Late st Contact Info) Description 06/25/2025 2:30 PM EDT Office Visit [facility] [address] [place] [address] Kelly Rushing MD [address] [place] [address] documented as of this encounter Visit Diagnoses Diagnosis Low back pain with sciatica, sciatica laterality unspecified, unspecified back pain laterality, unspecified chronicity documented in this encounter Additional Health Concerns Assessment Noted Time PHQ-9 Depression Total Score: 7 09/12/20 3:14 PM EDT documented as of this encounter Care Teams Edger Machine Setter Relationship Specialty Start Date End Date Kelly Rushing MD [address] [place] [address] PCP - General Family Medicine 11/30/22 documented as of this encounter
== END 2025-05-15 14:27 | disposition home or self-care (01) ==
LOC: HO.HOS 13:45
DX: S52.501A Unspecified fracture of the lower end of right radius, initial encounter for closed fracture (principal)
CPT/HCPCS: 99024

== ENCOUNTER → 2025-05-15 13:46 | Outpatient (BNV) | payer OTHER, SELFPAY | PROVIDERS: Visit Provider Radiology Diagnostic Radiology | DX: S52.501K Unspecified fracture of the lower end of right radius, subsequent encounter for closed fracture with nonunion (principal) | CPT/HCPCS: 73110 ==

== ENCOUNTER 2025-06-15 13:05 | Outpatient (REF) | payer OTHER, SELFPAY ==
--- NOTE | ~2025-06-15 | XR_ITS ---
EXAMINATION: XR WRIST 3 OR MORE VIEWS RIGHT HISTORY: M25.531 - Pain in right wrist COMPARISON: Comparison is made with the prior examination dated 05/15/2025. FINDINGS: Three views of the right breast are submitted. The bones are osteopenic. Again seen is a fracture of the distal radial metaphysis. There is increased sclerosis at the fracture line which is less visible, consistent with healing. The joint spaces are preserved. The soft tissues are unremarkable. XR/XR wrist RT min 3V IMPRESSION: Healing fracture of the distal radial metaphysis. Electronically signed by: Ricky Pritchard MD 06/15/2025 01:58 PM EDT
--- OUTSIDE RECORDS SUMMARY | 2025-06-15 13:49 | XMS_ITS | Encounter Summary ---
Author Organization [employer] Address [address] [facility] [address] [place] [address] Care Team Providers Care Transcript Evaluator Name Role Phone Kelly Rushing MD Primary Care Provider [phone] Reason for Visit * Reason Comments Med Refill Encounter Details Date Type Department Care Team (Late st Contact Info) Description 09/15/2024 Refill [facility] MED & PEDS [address] [place], [place] [phone] Kelly Rushing MD [address] [place] [address] Low back pain with sciatica, sciatica laterality [...] results and mammogram, so I will address TRANSFORMER ASSEMBLER and meds with her then. documented in this encounter Plan of Treatment Upcoming Encounters Date Type Department Care Team (Late st Contact Info) Description 06/25/2025 2:30 PM EDT Office Visit [facility] MEDICINE [address] [place] [address] Kelly Rushing MD [address] [place] [address] documented as of this encounter Visit Diagnoses Diagnosis Low back pain with sciatica, sciatica laterality unspecified, unspecified back pain laterality, unspecified chronicity documented in this encounter Additional Health Concerns Assessment Noted Time PHQ-9 Depression Total Score: 7 09/12/20 3:14 PM EDT documented as of this encounter Care Teams Transcript Evaluator Relationship Specialty Start Date End Date Kelly Rushing MD [address] [place] [address] PCP - General Family Medicine 11/30/22 documented as of this encounter
== END 2025-06-15 13:06 | disposition home or self-care (01) ==
LOC: HO.HOSX 13:05
DX: S52.501D Unspecified fracture of the lower end of right radius, subsequent encounter for closed fracture with routine healing (principal); M25.531 Pain in right wrist; M79.641 Pain in right hand; M79.644 Pain in right finger(s); Z98.51 Tubal ligation status; X58.XXXD Exposure to other specified factors, subsequent encounter
CPT/HCPCS: 73110; 99212

== ENCOUNTER 2025-06-15 13:05 | Outpatient (AMB) | payer OTHER, SELFPAY ==
[2025-06-15 13:22] VITALS: BMI 21.5
--- NOTE | 2025-06-15 13:22 | MHC.OFFVIS ---
Vital Signs 06/15/25 13:22 Height 5 ft Weight 110 lb BMI 21.5 Intake Visit Reasons: OV - Right Distal Radius Fracture 04/11/25 Intake Note: Lorenza is a 64 year old right hand dominant female who presents today for a follow up visits/p Right Distal Radius Fracture 05/12/25. She was placed in a velcro wrist brace at her last visit. Patient reports today she continues to have right thumb pain as well as multiple pressure points, accompanied by numbness at the fingertips. She is not taking any OTC pain medications at this time. She continues to wear her wrist brace for most activities. She does feel it feels too tight at times. Finishing Machine Operator Required: Yes Finishing Machine Operator Language: Loin Puller Services: Finishing Machine Operator Offered & Declined Allergies oxycodone (Percocet) Allergy (Unknown, Verified 06/15/25 13:29) GI upset codeine (CODEINE) Adverse Reaction (Intermediate, Verified 06/15/25 13:29) GI UPSET From Percocet Adverse Reaction (Intermediate, Uncoded 06/15/25 13:29) GI UPSET HPI HPI OV - Right Distal Radius Fracture 04/11/25: Details: Lorenza is a 64 year old right hand dominant female who presents today for a follow up visits/p Right Distal Radius Fracture 05/12/25. She was placed in a velcro wrist brace at her last visit. Patient reports today she continues to have right thumb pain as well as multiple pressure points, accompanied by numbness at the fingertips. She is not taking any OTC pain medications at this time. She continues to wear her wrist brace for most activities. She does feel it feels too tight at times. [facility] Surgical History H/O tubal ligation Review of Systems Const All systems reviewed & are unremarkable except as noted in HPI and below Physical Exam Vital Signs: BMI result Body Mass Index 21.5 Const General: cooperative, healthy appearing and no acute distress Orientation/consciousness: oriented to person and oriented to place HEENT Head: Yes normocephalic and Yes atraumatic Eyes EOM: EOMs intact bilaterally Resp Effort & Inspection: normal respiratory effort and able to speak in complete sentences Cardio Jugular venous distension: no JVD Skin General skin exam: turgor normal Rashes: no rashes Neuro General: oriented to person and oriented to place Extrem Other: Evaluation of right Upper Extremity: The patient was alert oriented and in no acute distress. She was originally in a Velcro thumb spica splint Sensation is intact to the tips of all digits, and she has good cap refill Nontender to palpation over the distal radius, mild tenderness to palpation of the anatomical snuffbox today She can weakly bring her fingers closed to a fist and back into extension No tenderness to palpation about the elbow or with proximal forearm squeeze. She has good flexion and extension about the elbow Radiographs: Three views of the right wrist were taken today and reviewed by me in clinic. They were compared with radiographs from 04/09/2025. They show a minimally displaced transverse fracture of the right distal radial metaphysis with some loss of volar tilt on the lateral view. She is roughly at about neutral on the lateral view. There is evidence of interval bony healing Psych Appearance: grossly normal Affect: normal affect Attitude: cooperative Assessment & Plan Assessment & Plan (1) Distal radius fracture, right: Code(s): S52.501A - Unspecified fracture of the lower end of right radius, initial encounter for closed fracture Category: Medical (2) Tenderness of anatomical snuffbox: Code(s): M79.643 - Pain in unspecified hand Category: Medical Plan 1. Right distal radius fracture 2. Anatomical snuffbox tenderness Date of injury 04/11/2025 Patient is educated about this condition Patient is educated about the typical recovery course At this time, MRI is ordered due to ongoing anatomical snuffbox tenderness and concern for potential occult scaphoid fracture Patient should continue wearing the Velcro wrist splint on the right wrist with daytime activities Patient is amenable to this plan Follow-up after MRI for results review and discussion of further treatment options, sooner with any acute concerns Orders: Orders XR wrist RT min 3V Today M25.531 - Pain in right wrist OT Evaluation and Treatment Today S52.501A - Unspecified fracture of the lower end of right radius, initial encounter for closed fracture MR wrist LT wo con Today M79.643 - Pain in unspecified hand Coding Level of Care Code Global (24747) Diagnoses Distal radius fracture, right S52.501A Tenderness of anatomical snuffbox M79.643
== END 2025-06-15 14:23 | disposition home or self-care (01) ==
LOC: HO.HOS 13:06
DX: S52.501A Unspecified fracture of the lower end of right radius, initial encounter for closed fracture (principal); M79.643 Pain in unspecified hand
CPT/HCPCS: 99024

== ENCOUNTER → 2025-06-15 13:49 | Outpatient (BNV) | payer OTHER, SELFPAY | PROVIDERS: Visit Provider Radiology Diagnostic Radiology | DX: S52.591D Other fractures of lower end of right radius, subsequent encounter for closed fracture with routine healing (principal) | CPT/HCPCS: 73110 ==

== ENCOUNTER 2025-07-04 11:31 | Emergency (ER) | payer OTHER, SELFPAY ==
--- NOTE | ~2025-07-04 | CT_ITS ---
EXAMINATION: CT ABDOMEN AND PELVIS WITH CONTRAST CLINICAL INFORMATION: Reason for Exam-LLQ pain, bloated COMPARISON: Report from previous CT abdomen/pelvis dated August 04, 2019 is available for review. TECHNIQUE: Multidetector volumetric images were obtained from the superior aspect of the liver through the pubic symphysis following administration 85 cc of Omnipaque 350 intravenous contrast. Sagittal and coronal reformatted images were obtained on the technologist's workstation. Oral contrast: No This CT examination was performed using dose optimization techniques as appropriate, variously including the following: *Automated exposure control *Adjustment of mA and/or kV according to patient size (this includes techniques or standardized protocols for targeted exams where dose is matched to indication/reason for exam; i.e. extremities or head) *Use of iterative reconstruction technique FINDINGS: LUNG BASES: Lung bases are clear. No pleural effusions. LIVER, GALLBLADDER, AND BILIARY TREE: Mild hepatomegaly measuring 16.1 cm. Tiny hypodensity in the left hepatic lobe (8:11) is too small to characterize. The gallbladder is unremarkable with no evidence of radiopaque gallstones, gallbladder wall thickening, or obvious pericholecystic inflammatory changes. No biliary ductal dilatation. PANCREAS: Unremarkable. SPLEEN: No splenomegaly. No focal lesions. ADRENAL GLANDS: No nodules. KIDNEYS AND URETERS: Lower pole left renal cyst measures 2.0 cm (8:55). No hydronephrosis or solid-appearing renal masses on either side. GASTROINTESTINAL TRACT: No bowel distention. Known colonic diverticulosis. There is a short segment of the sigmoid colon in the left pelvic region that shows wall thickening and surrounded by fatty stranding (6:36, 8:50, 7:35). PERITONEUM/RETROPERITONEUM: No free air. Fatty stranding surrounding the short segment of abnormal sigmoid colon as described above. Small amount of free fluid in the pelvis. ABDOMINAL WALL: Unremarkable. LYMPH NODES: No lymphadenopathy. VASCULAR: No abnormality arch aneurysm. Moderate/severe atherosclerotic disease with calcifications. Prominence of the left pelvic venous structures and left gonadal vein; in appropriate clinical setting this may represent pelvic congestion syndrome. PELVIC VISCERA: Unremarkable appearance of partially distended urinary bladder. No pelvic masses. OSSEOUS STRUCTURES: Degenerative changes are more prominent at L5-S1. Enlargement, cortical thickening and sclerotic and lucent changes of the right iliac bone, described in the prior study from [address]/CT abdomen pelvis w IV con IMPRESSION: CT findings suggestive of focal acute diverticulitis involving the sigmoid colon in the left pelvis. No evidence of abscess formation or perforation. Presence of abnormal findings was communicated to the ordering physician Dr. Hinojosa at the time of this interpretation via secure message system, with prompt reply received. Electronically signed by: Araceli Seth MD 07/04/2025 04:33 PM EDT
--- NOTE | 2025-07-04 11:38 | ED.GENADULT ---
HPI - General Adult General Chief complaint: Abdominal Pain Stated complaint: Abd 3 days, Cough, leg pain Time Seen by Provider: 07/04/25 13:02 Source: patient and old records reviewed Mode of arrival: ambulatory Limitations: no limitations History of Present Illness ED Provider: NABEEL GRIFFITHS narrative: 64 yo female with PMH of HTN, hypothyroidism, ? diverticulitis vs colitis it is not clear at this time she presents with bloating, distention and LLQ pain but no fevers. She has difficulty urinating and difficulty have BM - patient notes she had prior colon inflammation but is it not clear what that means. She notes she has taken no medications for it. She has no GIB symptoms. She has no dysuria. MD complaint: abdominal pain Onset (ago): day(s) (3) Location: abdomen Radiation: non-radiation Severity: moderate Quality: aching Pain Consistency: constant Relieving factors: none Exacerbating factors: movement Associated symptoms: loss of appetite, malaise and other (constipation, lack of urinary symptoms) Treatments prior to arrival: none Related Data Home Medications ?Medication ?Instructions ?Recorded ?Confirmed albuterol sulfate 90 mcg/actuation inhalation 11/02/24 aerosol inhaler cholecalciferol (vitamin D3) 50 50 mcg PO DAILY 11/02/24 mcg (2,000 unit) capsule fluticasone 250 mcg-salmeterol 50 1 ea inhalation BID 11/02/24 mcg/dose blistr powdr for inhalation (Carolynexbrenda Inhub) levothyroxine 50 mcg tablet 50 mcg PO DAILY 11/02/24 losartan 25 mg tablet 25 mg PO DAILY 11/02/24 zolpidem 10 mg tablet 10 mg PO BEDTIME PRN 11/02/24 zolpidem 5 mg tablet 5 mg PO BEDTIME PRN 11/02/24 Previous Rx's ?Medication ?Instructions ?Recorded ondansetron 4 mg disintegrating 4 mg PO Q6-8H PRN nausea and 11/08/23 tablet vomiting #14 tabs amoxicillin 875 mg-potassium 1 tab PO BID #14 tabs 07/04/25 clavulanate 125 mg tablet hydrocodone 5 mg-acetaminophen 325 1 tab PO Q6H PRN pain #10 tabs 07/04/25 mg tablet ondansetron 4 mg disintegrating 4 mg PO Q8H PRN nausea and 07/04/25 tablet vomiting #20 tabs Allergies Allergy/AdvReac Type Severity Reaction Status Date / Time oxycodone (Percocet) Allergy Unknown GI upset Verified 07/04/25 11:39 codeine (CODEINE) AdvReac Intermediate GI UPSET Verified 07/04/25 11:39 From Percocet AdvReac Intermediate GI UPSET Uncoded 07/04/25 11:39 Review of Systems Review of Systems: Constitutional : No Weight loss, No Fever, No Chills ENT/Mouth : No sore throat, No Rhinorrhea Eyes: No Swelling, No Redness Cardiovascular : No Chest Pain, No SOB, NoEdema Respiratory : No Cough, No Sputum, No Wheezing Gastrointestinal : Positive Nausea, no Vomiting, no Diarrhea, positive abdominal Pain, No Hematochezia, No Melena Genitourinary : No Dysuria, No Urinary Frequency, No Hematuria, No Urgency Musculoskeletal : No joint pain, No Myalgias, No Joint Swelling Skin : No Skin Lesions, No rash Neuro : No Weakness, No Numbness, No Dizziness, No Headache All other systems reviewed and are negative. COUNT INCLUDES [facility] Past Medical History Attestation statement: The following information was validated with the patient. Source: old records reviewed Medical History Varicose veins of both lower extremities with inflammation Surgical History H/O tubal ligation Social History Social History Smoked in Last 30 Days: No Use of substances other than those prescribed or required for medical reasons: Yes Substance Use Type: Marijuana Substance Use Frequency: Occasionally Advance Directives: No Advance Directives Information Provided: Yes Do you have a plan to hurt others: No Plan Physical Exam ED Vital Signs: Vital Signs - 24 hr 07/04/25 11:39 07/04/25 12:49 07/04/25 14:49 Temperature 97 F 98.0 F Pulse Rate 77 71 68 Respiratory Rate 16 16 16 Blood Pressure 159/73 H 154/70 H 181/84 H Pulse Oximetry 96 100 96 Oxygen Delivery Method Room Air Room Air Room Air 07/04/25 16:25 Temperature Pulse Rate 68 Respiratory Rate 18 Blood Pressure 172/81 H Pulse Oximetry 98 Oxygen Delivery Method Room Air BMI result Body Mass Index 22.3 Appearance: Alert. Oriented X3. No acute distress. Eyes: Pupils equal, round and reactive to light. ENT: Pharynx normal. Neck: Normal inspection. Neck supple. CVS: Normal heart rate and rhythm. Pulses normal. Respiratory: No respiratory distress. Breath sounds normal. Abdomen: Soft and moderate lower abd ttp no rebound or guarding Skin: Skin warm and dry. Normal skin color. Normal skin turgor. Extremities: No lower extremity edema. No calf ttp Neuro: Oriented X 3. No motor deficit. No sensory deficit. CN2-12 intact Course Course Course Narrative: This is a rapid medical exam performed by Dominique Iniguez NP: Additional HPI, ROS, PE not included below will be deferred to primary provider. Patient is a 64-year-old female presenting to the ED with complaint of lower abdominal/suprapubic pain radiating to legs for the past 3-4 days. States she is not passing gas. Last BM yesterday, felt better afterwards but this morning pain returned. Dysuria, denies hematuria. Nausea and vomiting, describes emesis as mucousy. Cough. Poor historian of pmhx. Plan: Labs, UA, viral serology Medications Administered Discontinued Medications Generic Name Dose Route Start Last Admin Trade Name Freq PRN Reason Stop Dose Admin Acetaminophen 1,000 mg in 100 mls @ 400 mls/hr 07/04/25 13:56 07/04/25 14:34 Ofirmev IV 07/04/25 14:10 Infused ONCE ONE Infusion Iohexol 100 ml 07/04/25 15:36 07/04/25 15:37 Iohexol 350 Mg/Ml 100 Ml Infus..Btl IV 07/04/25 15:37 85 ml ONCE ONE Administration Ondansetron HCl 4 mg 07/04/25 13:56 07/04/25 14:11 Ondansetron Hcl 4 Mg/2 Ml Vial IVPUSH 07/04/25 13:57 4 mg ONCE ONE Administration Medical Decision Making Medical Decision Making [facility] Narrative: 64 yo female with PMH of HTN, hypothyroidism, ? diverticulitis vs colitis now here with bloating, lower abdominal pain, feels it is hard to urinate and have BM. No bloody stools. She can tolerate PO at this time will need basic labs, UA, CT scan for renal colic, diverticular dx, constipation, mass, renal colic. Differential Diagnosis Differential Diagnoses: The differential diagnosis associated with the presentation includes colitis, diverticulitis, renal colic, constipation Admission/Observation Consideration of admission/observation: Escalation of care including admission/observation considered labs reassuring tolerating PO will start on augmentin Lab Data MDM Lab Attestation statement: I reviewed the patient's lab results. 07/04/25 11:55 07/04/25 11:55 Labs: Lab Results 07/04/25 Range/Units 11:55 WBC 9.9 (4.8-10.8) X10*3/uL RBC 4.30 (4.20-5.50) X10*6/uL Hgb 12.6 (12.0-16.0) g/dl Hct 38.9 (37.0-47.0) % MCV 90.5 (80.0-98.0) fL MCH 29.3 (27.0-33.0) pg MCHC 32.4 (31.0-35.0) g/dl RDW 15.5 (11.0-16.0) % Plt Count 261 (160-400) X10*3/uL MPV 9.4 (9.4-12.3) fL Immature Gran % (Auto) 0.5 H (0.0-0.4) % Neut % (Auto) 76.9 H (45-73) % Lymph % (Auto) 16.9 L (20-40) % [place] % (Auto) 4.8 (2-11) % Eos % (Auto) 0.5 (0-4) % Baso % (Auto) 0.4 (0-2) % Lymph # (Auto) 1.7 (1.2-4.9) X10*3/uL [place] # (Auto) 0.5 (0.1-1.2) X10*3/uL Eos # (Auto) 0.1 (0.0-0.4) X10*3/uL Baso # (Auto) 0.0 (0.0-0.2) X10*3/uL Abs Immat Gran (auto) 0.05 H (0.00-0.03) X10*3/uL Absolute Neuts (auto) 7.6 (2.0-8.3) x10*3/uL Absolute Nucleated RBC 0.000 (0.0-0.012) X10*3/uL Nucleated RBC % (auto) 0.0 (0.0-0.2) /100WBC Sodium 140 (135-145) mmol/L Potassium 3.1 L D (3.3-5.1) mmol/L Chloride 106 (96-108) mmol/L Carbon Dioxide 26 (22-29) mmol/L Anion Gap 11 L (12-20) BUN 11 (9-16) mg/dL Creatinine 0.73 (0.5-1.4) mg/dL Estim Creat Clear Calc 55.2 Estimated GFR > 60 Random Glucose 203 H (60-115) mg/dL Calcium 9.4 (8.4-10.2) mg/dL Total Bilirubin 0.3 (0.0-1.0) mg/dL AST 20 (5-31) U/L ALT 10 (0-31) U/L Alkaline Phosphatase 74 (39-117) U/L Total Protein 7.7 (6.5-8.0) g/dL Albumin 4.3 (3.5-5.0) g/dL Urine Color Yellow Urine Appearance Clear Urine pH 6.0 (5.0-9.0) Ur Specific [place] <= 1.005 (1.005-1.025) Urine Protein Negative (Neg-Trace) mg/dL Urine Glucose (UA) Negative (Negative) mg/dL Urine Ketones Negative (Negative) mg/dL Urine Blood Small (1+) H (Negative) Urine Nitrite Negative (Negative) Ur Leukocyte Esterase Negative (Negative) Urine RBC 0-2 (0-2) /HPF Urine WBC 0-5 (0-5) /HPF Ur Squamous Epith Cells 0-2 (0-2) /HPF Urine Bacteria Trace (None Seen) Hyaline Casts 0-2 (0-2) /LPF Influenza Type A (PCR) NEGATIVE (Negative) Influenza Type B (PCR) NEGATIVE (Negative) RSV RNA Qual (PCR) NEGATIVE (Negative) SARS-CoV-2 RNA (RT-PCR) NEGATIVE (Negative) Independent Interpretation I performed an independent interpretation of an: CT Scan (uncomplicated diverticulitis) Radiology Impression Discussion of test interpretation with radiology: I discussed test interpretation with the radiologist and I have reviewed the radiologist's reading. Independent Historian Clinical information obtained from an independent historian. History obtained from or confirmed by: Spouse External Record Review External record reviewed: Outpatient record Prescription Management I considered prescription management with: Pain Medication and Antibiotic Discharge Plan Discharge Clinical Impression: Diverticulitis, Acute hypokalemia Patient Disposition: Home, Self-Care Instructions: Diverticulitis (ED), Hypokalemia (ED), Diverticulitis Diet (ED) Additional Instructions: rest and stay hydrated next dose of antibiotic 9pm tonight return for fevers, worsening pain, rectal bleeding that is more than on toilet paper, unable to eat or drink or any other concerns make sure you see your doctor in next month for follow up On amoxicillin-clavulanate, softer bowel movements are to be expected. Call your provider if you move your bowels more than 4 times a day, your bowel movements are almost all liquid, or you get a rash.? GASTROINTESTINAL TRACT: No bowel distention. Known colonic diverticulosis. There is a short segment of the sigmoid colon in the left pelvic region that shows wall thickening and surrounded by fatty stranding (6:36, 8:50, 7:35). Prescriptions: New hydrocodone-acetaminophen 5-325 mg tablet 1 tab PO Q6H PRN (Reason: pain) Qty: 10 0RF Rx Instructions: partial fill okay; Partial Fill upon patient request. ondansetron 4 mg tablet,disintegrating 4 mg PO Q8H PRN (Reason: nausea and vomiting) Qty: 20 0RF amoxicillin-pot clavulanate 875-125 mg tablet 1 tab PO BID Qty: 14 0RF No Action ondansetron 4 mg tablet,disintegrating 4 mg PO Q6-8H PRN (Reason: nausea and vomiting) Qty: 14 0RF albuterol sulfate 90 mcg/actuation HFA aerosol inhaler inhalation fluticasone propion-salmeterol [Wixela Inhub] 250-50 mcg/dose blister with device 1 ea inhalation BID zolpidem 5 mg tablet 5 mg PO BEDTIME PRN levothyroxine 50 mcg tablet 50 mcg PO DAILY losartan 25 mg tablet 25 mg PO DAILY cholecalciferol (vitamin D3) 50 mcg (2,000 unit) capsule 50 mcg PO DAILY zolpidem 10 mg tablet 10 mg PO BEDTIME PRN Print Language: Maltese
[2025-07-04 11:39] VITALS: BP 159/73; PULSE 77; RESP 16; TEMP 36.1; O2SAT 96; BMI 22.3
[2025-07-04 12:02] LABS: MANUAL DIFF FLAG NO
[2025-07-04 12:04] LABS: Appearance Urine Clear; Glucose Urine UA Negative (Negative); Hematocrit 38.9 % (37.0-47.0); Hemoglobin 12.6 g/dl (12.0-16.0); Imm Gran Abs Auto 0.05 X10*3/uL (0.00-0.03); Imm Gran Pct Auto 0.5 % (0.0-0.4); Lymphocytes Absolute Auto 1.7 X10*3/uL (1.2-4.9); Mean Corpuscular HGB Conc 32.4 g/dl (31.0-35.0); Mean Corpuscular Hemoglobin 29.3 pg (27.0-33.0); Mean Corpuscular Volume 90.5 fL (80.0-98.0); NRBC Abs Auto 0.000 X10*3/uL (0.0-0.012); NRBC Pct Auto 0.0 /100WBC (0.0-0.2); PH 6.0 (5.0-9.0); Platelet Count 261 X10*3/uL (160-400); Red Blood Count 4.30 X10*6/uL (4.20-5.50); Specific Gravity - Urine <= 1.005 (1.005-1.025); UMIC TRIGGER UACC YES; White Blood Count 9.9 X10*3/uL (4.8-10.8)
[2025-07-04 12:34] LABS: Alanine Aminotransferase 10 U/L (0-31); Albumin Level 4.3 g/dL (3.5-5.0); Alkaline Phosphatase 74 U/L (39-117); Anion Gap 11 (12-20); Aspartate Amino Transferase 20 U/L (5-31); Blood Urea Nitrogen 11 mg/dL (9-16); Calcium 9.4 mg/dL (8.4-10.2); Carbon Dioxide 26 mmol/L (22-29); Chloride 106 mmol/L (96-108); Creatinine Clr Calc Pharmacy 55.2; Estimated Glomerular Filt Rate > 60; Potassium 3.1 mmol/L (3.3-5.1); Sodium 140 mmol/L (135-145); Total Protein 7.7 g/dL (6.5-8.0)
[2025-07-04 12:45] LABS: Resp Syncy Virus RNA Qual PCR NEGATIVE (Negative); SARS COV2 PCR INHOUSE NEGATIVE (Negative)
[2025-07-04 12:49] VITALS: BP 154/70; PULSE 71; RESP 16; O2SAT 100
--- OUTSIDE RECORDS SUMMARY | 2025-07-04 13:59 | XMS_ITS | Encounter Summary ---
Author Organization [employer] Address [address] [place] [address] Care Team Providers Care Online Content Developer Name Role Phone Kelly Rushing MD Primary Care Provider [phone] Reason for Visit * Reason Comments Med Refill Encounter Details Date Type Department Care Team (Late st Contact Info) Description 09/15/2024 Refill [facility] PEDS [address] [place], [place] [id number] Kelly Rushing MD [address] [place] [address] Low back pain with sciatica, sciatica laterality [...] results and mammogram, so I will address [employer] and meds with her then. documented in this encounter Plan of Treatment Upcoming Encounters Date Type Department Care Team (Late st Contact Info) Description 08/17/2025 11:15 AM EDT Office Visit [facility] MEDICINE [address] [place] [address] Kelly Rushing MD [address] [place] [address] documented as of this encounter Visit Diagnoses Diagnosis Low back pain with sciatica, sciatica laterality unspecified, unspecified back pain laterality, unspecified chronicity documented in this encounter Additional Health Concerns Assessment Noted Time PHQ-9 Depression Total Score: 7 09/12/20 3:14 PM EDT documented as of this encounter Care Teams Online Content Developer Relationship Specialty Start Date End Date Kelly Rushing MD [address] [place] [address] PCP - General Family Medicine 11/30/22 documented as of this encounter
[2025-07-04 14:49] VITALS: BP 181/84; PULSE 68; RESP 16; TEMP 36.7; O2SAT 96
[2025-07-04] MEDS: iohexoL 350 MG/ML 100 ML INFUS..BTL IV (15:37)
[2025-07-04 16:25] VITALS: BP 172/81; PULSE 68; RESP 18; O2SAT 98
[2025-07-04] MEDS: Potassium Chloride ER 20 MEQ TAB.ER.PRT 40 MEQ PO (16:48)
[2025-07-04 16:57] VITALS: BP 172/81; PULSE 68; RESP 18; TEMP 36.7; O2SAT 98
== END 2025-07-04 16:59 | disposition home or self-care (01) ==
PROVIDERS: Registered Nurse Emergency; Emergency Provider Emergency Medicine; PCP General Practice
DX: K57.32 Diverticulitis of large intestine without perforation or abscess without bleeding (principal); R10.2 Pelvic and perineal pain; E87.6 Hypokalemia; R05.9 Cough, unspecified; R10.32 Left lower quadrant pain; R33.9 Retention of urine, unspecified; K59.00 Constipation, unspecified; Z03.818 Encounter for observation for suspected exposure to other biological agents ruled out; Z79.899 Other long term (current) drug therapy
CPT/HCPCS: 36415; 74177; 80053; 81001; 81003; 85025; 87637; 96365; 96375; 99284; 99285; J0131; J2405; Q9967

== ENCOUNTER → 2025-07-04 13:56 | Outpatient (BNV) | payer OTHER, SELFPAY | PROVIDERS: Emergency Provider Emergency Medicine; PCP General Practice; Visit Provider Radiology Body Imaging | DX: K57.32 Diverticulitis of large intestine without perforation or abscess without bleeding (principal) | CPT/HCPCS: 74177 ==

== ENCOUNTER 2025-07-11 13:00 | Outpatient (RCR) | payer OTHER, SELFPAY ==
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
== END 2025-07-24 14:05 | disposition home or self-care (01) ==
LOC: HO.OT 13:00
PROVIDERS: PCP General Practice
DX: S52.501D Unspecified fracture of the lower end of right radius, subsequent encounter for closed fracture with routine healing (principal)
CPT/HCPCS: 97110; 97140; 97165

== ENCOUNTER 2025-07-12 16:15 | Outpatient (REF) | payer OTHER, SELFPAY ==
--- NOTE | ~2025-07-12 | MR_ITS ---
EXAMINATION: MR WRIST WITHOUT CONTRAST, RIGHT TECHNIQUE: Multiplanar - multisequence imaging through an upper extremity joint was performed. Right wrist INDICATION: M79.643 - Pain in unspecified hand, 3 months PRIOR: X-ray on June 15, 2025 FINDINGS: Triangular fibrocartilage complex: There is a full-thickness perforation to the triangular fibrocartilage near the sigmoid notch of radius. Intrinsic wrist ligaments: Volar band and membranous component of the scapholunate ligament is indistinct and torn. The dorsal band is intact. The lunotriquetral ligament is not clearly visible and likely torn. Extensor compartments: Tendons the extensor compartment are intact. Flexor tendons: Flexor tendons are intact. Carpal tunnel and Guyon's canal: Carpal tunnel and Guyon's canal structures are unremarkable. Bones/Marrow: Reactive marrow signal change and degenerative cystic change, more pronounced on the ulnar side, is present. Degenerative cystic changes present in the distal aspect of the capitate. Mild reactive marrow signal changes present in the radial side of the distal end of scaphoid. There is a transverse fracture across the distal metaphysis of radius not extending to the articular surface. There is mild impaction. Mild multifocal degenerative marrow signal changes are present in the ulnar side of the distal ulna. Ulnar plus variance measures 3 mm. Small marginal spurs are present along the first carpometacarpal joint and there is full-thickness cartilage loss along the volar side of the joint. Soft tissues: There is an effusion in the distal radioulnar joint. There is mildly increased synovial fluid within the radiocarpal compartment. There is mildly increased fluid in the first carpal metacarpal joint. 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 There is full-thickness perforation of trying the proper cartilage near the sigmoid notch previous. There is degenerative cystic and reactive marrow signal changes in the lunate. There is also a distal radial ulnar joint effusion. 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 Scapholunate ligament is torn through the membranous portion and volar band. Degenerative cystic marrow signal changes as in the distal capitate. There is a healing mildly impacted fracture of the distal radial metaphysis. Electronically signed by: Sarbjit Seay MD 07/13/2025 10:42 AM EDT RP
== END 2025-07-12 16:16 | disposition home or self-care (01) ==
LOC: HO.MRI 16:15
PROVIDERS: PCP General Practice
DX: M79.641 Pain in right hand (principal)
CPT/HCPCS: 73221

== ENCOUNTER → 2025-07-12 16:24 | Outpatient (BNV) | payer OTHER, SELFPAY | PROVIDERS: PCP General Practice; Visit Provider Radiology Diagnostic Radiology | DX: S63.511A Sprain of carpal joint of right wrist, initial encounter (principal) | CPT/HCPCS: 73221 ==

== ENCOUNTER 2025-08-29 13:29 | Outpatient (AMB) | payer OTHER, SELFPAY ==
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
== END 2025-08-29 14:47 | disposition home or self-care (01) ==
LOC: HO.HOS 13:30
PROVIDERS: PCP General Practice; Visit Provider Orthopaedic Surgery
DX: M25.641 Stiffness of right hand, not elsewhere classified (principal); M25.631 Stiffness of right wrist, not elsewhere classified
CPT/HCPCS: 99214

== ENCOUNTER → 2025-08-29 13:29 | Outpatient (BNVA) | payer OTHER, SELFPAY | PROVIDERS: PCP General Practice; Visit Provider Orthopaedic Surgery | DX: Z71.2 Person consulting for explanation of examination or test findings (principal); M25.631 Stiffness of right wrist, not elsewhere classified; M25.461 Effusion, right knee; M25.531 Pain in right wrist; M25.541 Pain in joints of right hand | CPT/HCPCS: 99212 ==

== ENCOUNTER 2025-09-11 13:50 | Outpatient (REF) | payer OTHER, SELFPAY ==
--- NOTE | ~2025-09-11 | XR_ITS ---
EXAMINATION: XR SHOULDER, LEFT CLINICAL INFORMATION: acute shoulder pain no injury COMPARISON: None available. TECHNIQUE: AP external rotation, Grashey, scapular Y, and axillary views of the left shoulder. FINDINGS: No acute cortical disruption or malalignment. No lytic or blastic lesions. No soft tissue calcifications. XR/XR shoulder LT min 2V IMPRESSION: No acute fracture or dislocation. Negative x-ray. Electronically signed by: Yayo Watters MD 09/11/2025 03:09 PM EDT
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
--- OUTSIDE RECORDS SUMMARY | 2025-09-11 18:29 | XMS_ITS | Encounter Summary ---
Author Organization [employer] Address [address] [facility] [address] [place] [address] Care Team Providers Care Accordion Tuner Name Role Phone Kelly Rushing MD Primary Care Provider [phone] Reason for Visit * Reason Comments Med Refill Encounter Details Date Type Department Care Team (Late st Contact Info) Description 09/15/[address] [facility] [address] [place], [place] [phone] Kelly Rushing MD [address] [place] [address] Low back pain with sciatica, sciatica laterality [...] results and mammogram, so I will address CROP OR GRAIN FARMWORKER and meds with her then. documented in this encounter Plan of Treatment Not on file documented as of this encounter Visit Diagnoses Diagnosis Low back pain with sciatica, sciatica laterality unspecified, unspecified back pain laterality, unspecified chronicity documented in this encounter Additional Health Concerns Assessment Noted Time PHQ-9 Depression Total Score: 7 09/12/20 24 3:14 PM EDT documented as of this encounter Care Teams Accordion Tuner Relationship Specialty Start Date End Date Kelly Rushing MD [address] [place] [id number] PCP - General Family Medicine 11/30/22 documented as of this encounter
--- OUTSIDE RECORDS SUMMARY | 2025-09-11 18:29 | XMS_ITS | Encounter Summary ---
Author Organization [employer] Address [address] [place] [address] 7t [place] [address] Care Team Providers Care Legal Counsel Name Role Phone Kelly Rushing MD Primary Care Provider [phone] Reason for Visit * Reason Comments Med Refill Encounter Details Date Type Department Care Team (Late st Contact Info) Description 01/25/2024 Refill [facility] [address] [place], [place] [phone] Kelly Rushing MD [address] [place] [address] Low back pain with sciatica, sciatica laterality unspecified, unspecified back pain laterality, unspecified chronicity Social History Tobacco Use Types Packs/Day Years Used Date Smoking Tobacco: Never Passive Smoke Exposure: Never Smokeless Tobacco: Never Alcohol Use Standard Drinks/Week Comments Yes 12 (1 standard drink = 0.6 oz pu re alcohol) Housing Stability Answer Date Recorded What is your housing situation today? I have denita kinney 12/14/[address] you li ve. Do you have problems with any of the following? Pests such as bugs, ants, or mice 12/14/2023 Food Insecurity Answer Date Recorded Within the past 12 months, y ou worried that your food would run out before you got money to buy more: Sometimes True 2023 Within the past 12 months,th e food you bought just didn't last and you didn't have enough money to get more: Sometimes True 12/14/2023 Transportation Answer Date Recorded In the past 12 months, has l ack of transportation kept you from medical appts, meetings, work or from getting things needed for daily living? No 12/14/2023 Utilities Answer Date Recorded In the past 12 months, has t he electric, gas, oil or water company threatened to shut off services in your home? No 12/14/2023 Comments Unknown Sex and Gender Information Value Date Recorded Sex Assigned at Female 09/21/2022 10:15 AM EDT Legal Sex Female 10:15 AM EDT Gender Identity Female 09/21/2022 10:15 AM EDT Sexual Orientation Choose not to disclose 2021 10:15 AM EDT documented as of this encounter Plan of Treatment Not on file documented as of this encounter Visit Diagnoses Diagnosis Low back pain with sciatica, sciatica laterality unspecified, unspecified back pain laterality, unspecified chronicity documented in this encounter Care Teams Legal Counsel Relationship Specialty Start Date End Date Kelly Rushing MD [address] [place] [address] PCP - General Family Medicine 11/30/22 documented as of this encounter
--- OUTSIDE RECORDS SUMMARY | 2025-09-11 18:29 | XMS_ITS | Encounter Summary ---
Author Organization [employer] Address [address] [facility] [address] [place] [address] Care Team Providers Care Filter Plant Operator Name Role Phone Kelly Rushing MD Primary Care Provider [phone] Reason for Visit * Reason Onset Date Comments Appointment Request 08/01/2024 Encounter Details Date Type Department Care Team ([facility] st Contact Info) Description 08/01/2024 Telephone [facility] [address] [place], [place] [phone] Kelly Rushing MD [address] [place], [place] [phone] Appointment Request Social History Tobacco Use Types Packs/Day Years [...] encounter Miscellaneous Notes * Telephone Encounter - Anthony Liz - 08/01/2024 8:22 AM EDT Tc from patient calling to reschedule PE appt from 07/28 however there is no availability at the moment documented in this encounter Plan of Treatment Not on file documented as of this encounter Visit Diagnoses Not on filedocumented in this encounter Care Teams Filter Plant Operator Relationship Specialty Start Date End Date Kelly Rushing MD [address] [place] [address] PCP - General Family Medicine 11/30/22 documented as of this encounter
--- OUTSIDE RECORDS SUMMARY | 2025-09-11 18:30 | XMS_ITS | Clinical Summary ---
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 either side. GASTROINTESTINAL TRACT: No bowel distention. Known colonic diverticulosis. There is a short segment of the sigmoid colon in the left pelvic region that shows wall thickening and surrounded by fatty stranding (6:36, 8:50, 7:35). PERITONEUM/RETROPERITONEUM: No free air. Fatty stranding surrounding the short segment of abnormal sigmoid colon as described above. Small amount of free fluid in the pelvis. ABDOMINAL WALL: Unremarkable. LYMPH NODES: No lymphadenopathy. VASCULAR: No abnormality arch aneurysm. Moderate/severe atherosclerotic disease with calcifications. Prominence of the left pelvic venous structures and left gonadal vein; in appropriate clinical setting this may represent pelvic congestion syndrome. PELVIC VISCERA: Unremarkable appearance of partially distended urinary bladder. No pelvic masses. OSSEOUS STRUCTURES: Degenerative changes are more prominent at L5-S1. Enlargement, cortical thickening and sclerotic and lucent changes of the right iliac bone, described in the prior study from [address]/CT abdomen pelvis w IV con IMPRESSION: CT findings suggestive of focal acute diverticulitis involving the sigmoid colon in the left pelvis. No evidence of abscess formation or perforation. Presence of abnormal findings was communicated to the ordering physician Dr. Hinojosa at the time of this interpretation via secure message system, with prompt reply received. Electronically signed by: Araceli Seth MD 07/04/2025 04:33 PM EDT Dictated By: Araceli Seth MD Signed By: <Electronically signed by Araceli Seth MD in OV> 07/04/25 1633 DD/ 1427 TD/TT: 07/04/25 1537 Meat Stringer: [facility] External Provider IMG CT PROCEDURES Final Result * (ABNORMAL) Urinalysis, Complete, with Reflex to Culture (07/04/2025 11:55 AM EDT) Color Urine Yellow [facility] Appearance Urine Clear [facility] PH 6.0 5.0 - 9.0 [facility] Glucose Urine UA Negative Negative mg/dL [facility] Urine Blood Small (1+)(A) Negative [facility] Specific [place] - Urine <=1.005 1.005 - 1.025 [facility] Urine Protein Negative Neg-Trace mg/dL [facility] Urine Ketones Negative Negative mg/dL [facility] Nitrite Urine Negative Negative [facility] Leukocyte Esterase Urine Negative Negative [facility] RBC Urine 0-2 0 - 2 /HPF [facility] Urine WBC 0-5 0 - 5 /HPF [facility] Urine Squamous Epithelial Cell 0-2 0 - 2 /HPF [facility] Urine Bacteria Trace None Seen [facility] Hyaline Casts, Urine 0-2 0 - 2 /LPF [facility] 07/04/2025 11:5 5 AM EDT 07/04/2025 12:00 PM EDT Narrative [facility] - 07/04/2025 12:19 PM EDT [id number], Clean [employer]atch Generic External Data Provider LAB URINE ORDERAB LES Final Result [facility] [address] [place] [phone] * SARS-CoV-2 RNA, Influenza A/B, and RSV RNA, Ql NAAT (07/04/2025 11:55 AM EDT) Influenza A PCR NEGATIVE Negative [facility] Influenza B PCR NEGATIVE Negative [facility] Resp Syncy Virus RNA Qual PCR NEGATIVE Negative [facility] SARS COV2 PCR NEGATIVE Negative [facility] Comment:All test results mus t be correlated with clinical findings.Negative results do not preclude SARS-CoV2, influenza Avirus, influenza B virus and/or RSV infectionand should not be used as the sole basis for treatment orother patient management decisions. Negative results must becombined with clinical observations, patient history, andepidemiological information.This test has not been evaluated for monitoring treatment ofinfection.This test has been authorized by the FDA under an EmergencyUse Authorization (EUA) for use by authorized laboratories.Testing performed on the [employer] GeneXpert utilizingreal-time RT-PCR.All SARS CoV2 and positive influenza A/B results arereported to [facility]. 07/04/2025 11:5 5 AM EDT 07/04/2025 12:06 PM EDT Generic External Data Provider LAB MICROBIOLOGY - GENERAL ORDERABLES Final Result [facility] [address] [place] [address] [phone] * (ABNORMAL) CBC auto differential (07/04/2025 11:55 AM EDT) White Blood Count 9.9 4.8 - 10.8 X10*3/uL [facility] Red Blood Count 4.30 4.20 - 5.50 X10*6/uL [facility] Hemoglobin 12.6 12.0 - 16.0 g/dl [facility] Hematocrit 38.9 37.0 - 47.0 % [facility] Mean Corpuscular Volume 90.5 80.0 - 98.0 fL [facility] Mean Corpuscular Hemoglobin 29.3 27.0 - 33.0 pg [facility] Mean Corpuscular HGB Conc 32.4 31.0 - 35.0 g/dl [facility] Red Cell Distribution Width 15.5 11.0 - 16.0 % [facility] Platelet Count 261 160 - 400 X10*3/uL [facility] Mean Platelet Volume 9.4 9.4 - 12.3 fL [facility] Neutrophils Percent Auto 76.9(H) 45 - 73 % [facility] Imm Gran Pct Auto 0.5(H) 0.0 - 0.4 % [facility] Lymphocytes Percent Auto 16.9(L) 20 - 40 % [facility] Monocytes Percent Auto 4.8 2 - 11 % [facility] Eosinophils Percent Auto 0.5 0 - 4 % [facility] Basophils Percent Auto 0.4 0 - 2 % [facility] NRBC Pct Auto 0.0 0.0 - 0.2 /100WBC [facility] Neutrophils Absolute Auto 7.6 2.0 - 8.3 x10*3/uL [facility] Imm Gran Abs Auto 0.05(H) 0.00 - 0.03 X10*3/uL [facility] Lymphocytes Absolute Auto 1.7 1.2 - 4.9 X10*3/uL [facility] Monocytes Absolute Auto 0.5 0.1 - 1.2 X10*3/uL [facility] Eosinophils Absolute Auto 0.1 0.0 - 0.4 X10*3/uL [facility] Basophils Absolute Auto 0.0 0.0 - 0.2 X10*3/uL [facility] NRBC Abs Auto 0.000 0.0 - 0.012 X10*3/uL [facility] 07/04/2025 11:5 5 AM EDT 07/04/2025 12:00 PM EDT us Generic External Data Provider LAB BLOOD ORDERAB LES Final Result [facility] [address] [place] [phone] * (ABNORMAL) Comprehensive Metabolic Panel (07/04/2025 11:55 AM EDT) Sodium 140 135 - 145 mmol/L [facility] Potassium 3.1(L) 3.3 - 5.1 mmol/L [facility] Chloride 106 96 - 108 mmol/L [facility] Carbon Dioxide 26 22 - 29 mmol/L [facility] Anion Gap 11(L) 12 - 20 [facility] Urea Nitrogen (BUN) 11 9 - 16 mg/dL [facility] Creatinine, Serum 0.73 0.5 - 1.4 mg/dL [facility] Creatinine Clr Calc Pharmacy 55.2 [facility] Comment:Provided height and weight: 152.4 cm,51.7 kg.eGFR (calculated from the MDRD study equation) and eCrCl(calculated from the Cockcroft-Gault equation) are based ondifferent parameters and may not yield comparable results.If eCrCl result is absurd, please check patient'sheight/weight. Estimated Glomerular Filt Rate >60 [facility] Comment:Chronic Kidney Disea se: Estimated GFR < 60 mL/min/1.29h7Sthugi Kidney Disease: Estimated GFR < 15 mL/min/1.73m2 Glucose 203(H) 60 - 115 mg/dL [facility] Calcium 9.4 8.4 - 10.2 mg/dL [facility] Bilirubin, Total 0.3 0.0 - 1.0 mg/dL [facility] Aspartate Amino Transferase 20 5 - 31 U/L [facility] Alanine Aminotransferase 10 0 - 31 U/L [facility] Total Protein 7.7 6.5 - 8.0 g/dL [facility] Albumin Level 4.3 3.5 - 5.0 g/dL [facility] Alkaline Phosphatase 74 39 - 117 U/L [facility] 07/04/2025 11:5 5 AM EDT 07/04/2025 12:00 PM EDT us Generic External Data Provider LAB BLOOD ORDERAB LES Final Result [facility] [address] [place] [phone] [phone] * Hm Mammography (05/29/2025 11:48 AM EDT) Anatomical Region Laterality Modality Other Historical Provider HEALTH MAINTENANCE Final Result * (ABNORMAL) Lipid Panel, Standard (09/12/2024 3:40 PM EDT) Triglycerides 146 <150 mg/dL [facility] Comment:Desirable Triglyceri de: less than 150 mg/dLBorderline High Triglyceride 150-199 mg/dLHigh Triglyceride: 200-499 mg/dLVery High Triglyceride: greater than or equal to 5OO mg/dL Cholesterol 216(H) <200 mg/dL [facility] Comment:Desirable Cholestero l: less than 200 mg/dLBorderline High Cholesterol: 200-239 mg/dLHigh Cholesterol: greater than 239 mg/dL LDL Cholesterol Calculated 105(H) <100 mg/dL [facility] Comment:Desirable LDL: less than 100 mg/dLNear Optimal/Above Optimal LDL: 110- 129 mg/dLBorderline High LDL: 130-159 mg/dLHigh LDL: 160-189 mg/dLVery High LDL: greater than or equal to 190 mg/dL HDL Cholesterol 82 >40 mg/dL [facility] Comment:Desirable HDL: great er than 40 mg/dL Note: This HDL assay may give artificially low results in patients with liver disease. Blood Venous blood specimen / Unknown 09/12/2024 3:40 PM EDT 09/12/2024 5:31 PM EDT Kelly Rushing MD LAB BLOOD ORDERABLES Final Res ult [facility] [address] [place] [phone] * HEPATITIS C AB W/REFL TO HCV RNA, QN, PCR (03/05/2021 3:03 PM EDT) HEPATITIS C ANTIBODY NON-REACT HUSAM NON-REACT HUSAM [facility] INDEX 0.01 <1.00 [facility] Comment: HCV antibody was non-reactive. There is no laboratory evidence of HCV infection. In most cases, no further action is required. However, if recent HCV exposure is suspected, a test for HCV RNA (test code 45953) is suggested. For additional information please refer to http://[employer].Lingorami/faq/ZCZ57r9 (This link is being provided for informational/ educational purposes only.) 03/05/2021 3:03 PM EDT Kim RIBERA HISTORICAL/NON ORDERABLE LABS Final Result [facility] [address] * Hm Colonoscopy (05/23/2019) Historical Provider HEALTH MAINTENANCE Final Result * HPV mRNA E6/E7 (06/15/2017 11:18 AM EDT) HPV mRNA E6/E7 Not Detected NOT DETECTED [facility] Comment: This test was performed using the APTIMA(R) HPV Assay ([employer] This assay detects E6/E7 viral messenger RNA (mRNA) from 14 high-risk HPV types (16,18,31,33,35,39,45,51, 52,56,58,59,66,68). For additional information please refer to: http://[employer].Lingorami/faq/GKH750c7 (This link is being provided for informational/ educational purposes only.) Test Performed by [facility], [facility], [address] [place] [address] Marc Marc M.D., Ph.D., Director of Laboratories , [place] [id number] Please note: Effective 08/03/2016, HPV testing will be performed using [employer]'s APTIMA test which targets mRNA. Detecting mRNA instead of DNA, as in older methods, offers significant improvements in specificity. 06/15/2017 11:1 8 AM EDT Muna Lyle NP HISTORICAL/NON ORDERABLE LABS Fi nal Result [facility] [address] from Last 3 Months or Most Recently Relevant to Health Maintenance Insurance [facility] RETIREMENT OPTIONS (HMO D-SNP) PASHA FLORES [id number] Care Teams Statistical Machine Mechanic Relationship Specialty Start Date End Date Kelly Rushing MD [address] [place] [id number] PCP - General Family Medicine 11/30/22
--- OUTSIDE RECORDS SUMMARY | 2025-09-11 18:30 | XMS_ITS | Encounter Summary ---
Author Organization [employer] Address [address] [place] [address] [address] [place] [address] Care Team Providers Care Metal Cleaner Name Role Phone Kelly Rushing MD Primary Care Provider [phone] Encounter Details Date Type Department Care Team (Late st Contact Info) Description 07/28/2023 Orders Only [facility] MEDICINE [address] [place], [place] [phone] Provider, MD Edwardo Social History Tobacco Use Types Packs/Day Years Used Date Smoking Tobacco: Never Passive Smoke Exposure: Never Smokeless Tobacco: Never Alcohol Use Standard Drinks/Week Comments Yes 12 (1 standard drink = 0.6 oz pu re alcohol) Comments Unknown Sex and Gender Information Value [...] Procedure Name Priority Date/Time Associated Diagnosis Comments COLONOSCOPY Routine 05/23/2019 documented in this encounter Results * Colonoscopy (05/23/2019) us Historical Provider HEALTH MAINTENANCE Final Result documented in this encounter Visit Diagnoses Not on filedocumented in this encounter Care Teams Metal Cleaner Relationship Specialty Start Date End Date Kelly Rushing MD [address] [place], [place] [phone] PCP - General Family Medicine 11/30/22 documented as of this encounter
--- OUTSIDE RECORDS SUMMARY | 2025-09-11 18:30 | XMS_ITS | Encounter Summary ---
Author Organization [employer] Address [address] [facility] 7t [place] [address] Care Team Providers Care Fine Grade Operator Name Role Phone Kelly Rushing MD Primary Care Provider [phone] Reason for Visit * Reason Comments Med Refill Encounter Details Date Type Department Care Team (Late st Contact Info) Description 08/22/2025 Refill [facility] [address] [place], [place] [phone] Kelly Rushing MD [address] [place], [place] [phone] Primary insomnia Social History Tobacco Use Types Packs/Day Years [...] as of this encounter Visit Diagnoses Diagnosis Primary insomnia Persistent disorder of initiating or maintaining sleep documented in this encounter Additional Health Concerns Assessment Noted Time PHQ-9 Depression Total Score: 6 08/17/20 25 12:26 PM EDT documented as of this encounter Care Teams Fine Grade Operator Relationship Specialty Start Date End Date Kelly Rushing MD [address] [place] [address] PCP - General Family Medicine 11/30/22 documented as of this encounter
--- OUTSIDE RECORDS SUMMARY | 2025-09-11 18:30 | XMS_ITS | Encounter Summary ---
Author Organization [employer] Address [address] [facility] 7t [place] [address] Care Team Providers Care General Manager Farm Name Role Phone Kelly Rushing MD Primary Care Provider [phone] Encounter Details Date Type Department Care Team (Late st Contact Info) Description 06/25/2025 Orders Only [facility] [address] [place] [address] ProviderEdwardo MD Social History Tobacco Use Types Packs/Day Years [...] is your housing situation today? I have denitajennifer kinney 06/14/[address] you [...] Procedure Name Priority Date/Time Associated Diagnosis Comments HM MAMMOGRAPHY Routine 05/29/2025 11:48 AM EDT documented in this encounter Results * Hm Mammography (05/29/2025 11:48 AM EDT) Anatomical Region Laterality Modality Other Historical Provider HEALTH MAINTENANCE Final Result documented in this encounter Visit Diagnoses Not on filedocumented in this encounter Additional Health Concerns Assessment Noted Time PHQ-9 Depression Total Score: 7 09/12/20 24 3:14 PM EDT documented as of this encounter Care Teams General Manager Farm Relationship Specialty Start Date End Date Kelly Rushing MD [address] [place] [address] PCP - General Family Medicine 11/30/22 documented as of this encounter
--- OUTSIDE RECORDS SUMMARY | 2025-09-11 18:30 | XMS_ITS | Encounter Summary ---
Author Organization [employer] Address [address] [facility] [address]t [place] [address] Care Team Providers Care Health Professional Name Role Phone Kelly Rushing MD Primary Care Provider [phone] Reason for Visit * Reason Comments Med Refill Encounter Details Date Type Department Care Team (Late st Contact Info) Description 04/26/2025 Refill [facility] MEDICINE [address] [place], [place] [phone] Kelly Rushing MD [address] [place], [place] [phone] Vitamin D deficiency; Primary insomnia Social History Tobacco Use Types [...] as of this encounter Visit Diagnoses Diagnosis Vitamin D deficiency Primary insomnia Persistent disorder of initiating or maintaining sleep documented in this encounter Additional Health Concerns Assessment Noted Time PHQ-9 Depression Total Score: 7 09/12/20 24 3:14 PM EDT documented as of this encounter Care Teams Health Professional Relationship Specialty Start Date End Date Kelly Rushing MD [address] [place] [phone] PCP - General Family Medicine 11/30/22 documented as of this encounter
--- OUTSIDE RECORDS SUMMARY | 2025-09-11 18:30 | XMS_ITS | Encounter Summary ---
Author Organization [employer] Address [address] [place] [address] [address]t [place] [address] Care Team Providers Care Scheduler Name Role Phone Cora Crews Primary Care Provider [phone] Kelly Rushing MD Primary Care Provider [phone] Encounter Details Date Type Department Care Team (Latest Contact Info) Description 10/16/2019 Abstract [facility] Dental, Provider, DDS Social History Tobacco Use Types Packs/Day Years Used Date Smoking Tobacco: Never Assessed Comments Unknown Sex and Gender Information Value [...] on filedocumented in this encounter Care Teams Scheduler Relationship Specialty Start Date End Date Cora Crews ANP [address] [place] [address] PCP - General Family Medicine 07/20/22 11/29/22 Kelly Rushing MD [address] [place], [place] [phone] PCP - General Family Medicine 11/30/22 documented as of this encounter
--- OUTSIDE RECORDS SUMMARY | 2025-09-11 18:30 | XMS_ITS | Encounter Summary ---
Author Organization [employer] Address [address] [place] [address] 7t [place] [address] Care Team Providers Care Medicare Compliance Auditor Name Role Phone Kelly Rushing MD Primary Care Provider [phone] Encounter Details Date Type Department Care Team (Late st Contact Info) Description 02/25/2023 Orders Only [facility] [address] [place], [place] [phone] Jerrica Galvez LPN Social History Tobacco Use Types Packs/Day Years [...] on filedocumented in this encounter Care Teams Medicare Compliance Auditor Relationship Specialty Start Date End Date Kelly Rushing MD [address] [place] [address] PCP - General Family Medicine 11/30/22 documented as of this encounter
--- OUTSIDE RECORDS SUMMARY | 2025-09-11 18:30 | XMS_ITS | Encounter Summary ---
Author Organization [employer] Address [address] [facility] 7t [place] [address] Care Team Providers Care Corking Machine Operator Name Role Phone Kelly Rushing MD Primary Care Provider [phone] Encounter Details Date Type Department Care Team (Latest Contact Info) Description 09/11/2025 Travel Social History Tobacco Use Types Packs/Day Years [...] documented as of this encounter Care Teams Corking Machine Operator Relationship Specialty Start Date End Date Kelly Rushing MD [address] [place] [phone] PCP - General Family Medicine 11/30/22 documented as of this encounter
--- OUTSIDE RECORDS SUMMARY | 2025-09-11 18:30 | XMS_ITS | Encounter Summary ---
Author Organization [employer] Address [address] [facility] 7t [place] [address] Care Team Providers Care Cold Storage Superintendent Name Role Phone Kelly Rushing MD Primary Care Provider [phone] Reason for Visit * Reason Comments Med Refill Encounter Details Date Type Department Care Team (Late st Contact Info) Description 09/06/2025 Refill [facility] MED[facility]INE [address] [place], [place] [phone] Kelly Rushing MD [address] [place], [place] [phone] Primary insomnia Social History Tobacco Use Types [...] documented as of this encounter Care Teams Cold Storage Superintendent Relationship Specialty Start Date End Date Kelly Rushing MD [address] [place] [address] PCP - General Family Medicine 11/30/22 documented as of this encounter
--- OUTSIDE RECORDS SUMMARY | 2025-09-11 18:30 | XMS_ITS | Encounter Summary ---
Author Organization [employer] Address [address] [facility] 7t [place] [address] Care Team Providers Care Mechanical Assembly Name Role Phone Kelly Rushing MD Primary Care Provider [phone] Reason for Visit * Reason Comments Med Refill Encounter Details Date Type Department Care Team (Late st Contact Info) Description 04/28/2025 Refill [facility] MED[facility]INE [address] [place], [place] [phone] Kelly Rushing MD [address] [place], [place] [phone] Primary insomnia Social History Tobacco Use Types [...] documented as of this encounter Care Teams Mechanical Assembly Relationship Specialty Start Date End Date Kelly Rushing MD [address] [place] [address] PCP - General Family Medicine 11/30/22 documented as of this encounter
--- OUTSIDE RECORDS SUMMARY | 2025-09-11 18:30 | XMS_ITS | Encounter Summary ---
Author Organization [employer] Address [address] [facility] 7t [place] [address] Care Team Providers Care Undercover Agent Name Role Phone Kelly Rushing MD Primary Care Provider [phone] Reason for Visit * Reason Comments Med Refill Encounter Details Date Type Department Care Team (Late st Contact Info) Description 08/28/2025 Refill [facility] MEDICINE [address] [place], [place] [phone] Kelly Rushing MD [address] [place], [place] [phone] Primary insomnia Social History Tobacco Use Types [...] documented as of this encounter Care Teams Undercover Agent Relationship Specialty Start Date End Date Kelly Rushing MD [address] [place] [address] PCP - General Family Medicine 11/30/22 documented as of this encounter
--- OUTSIDE RECORDS SUMMARY | 2025-09-11 18:30 | XMS_ITS | Encounter Summary ---
Author Organization [employer] Address [address] [place] [address] [address] [place] [address] Care Team Providers Care Crystal Gazer Name Role Phone Kelly Rushing MD Primary Care Provider [phone] Reason for Visit * Reason Comments Med Refill Encounter Details Date Type Department Care Team (Late st Contact Info) Description 10/29/[address] [facility] P[facility]S [address] [place], [place] [phone] Kelly Rushing MD [address] [place], [place] [phone] Chronic left shoulder pain Social History Tobacco Use Types Packs/Day Years [...] as of this encounter Visit Diagnoses Diagnosis Chronic left shoulder pain Pain in joint, shoulder region documented in this encounter Care Teams Crystal Gazer Relationship Specialty Start Date End Date Kelly Rushing MD [address] [place], [place] [phone] PCP - General Family Medicine 11/30/22 documented as of this encounter
== END 2025-09-11 13:51 | disposition home or self-care (01) ==
LOC: HO.HHCX 13:50
DX: M25.512 Pain in left shoulder (principal)
CPT/HCPCS: 73030

== ENCOUNTER → 2025-09-11 13:51 | Outpatient (BNV) | payer OTHER, SELFPAY | PROVIDERS: Visit Provider Radiology Diagnostic Radiology | DX: M25.512 Pain in left shoulder (principal) | CPT/HCPCS: 73030 ==